=== PATIENT | female | born 1950 | race Caucasian/White ===

== ENCOUNTER → 2017-07-11 17:29 | Outpatient (CLI) | payer MEDICARE, BC, SELFPAY ==
[2017-06-26 13:20] VITALS: BMI 31.6
[2017-07-11 18:04] LABS: Absolute Lymphocyte Count 2.16 X10^3/ul (0.83-4.51); Absolute Neutrophil Count 2.8 X10^3/uL (2.0-7.7); Basophil# 0.01 X10^3/uL; Basophil% 0.2 % (0-1); Eosinophil# 0.15 X10^3/uL; Eosinophils% 2.7 % (0-5); Hematocrit 34.7 % (37-47); Hemoglobin 10.3 g/dl (12.0-15.0); Lymphocyte # 2.16 X10^3/ul (4.0); Mean Corp Hgb Conc 29.7 g/gl (32-36); Mean Corpuscular Hgb 25.8 pg (27.0-32.0); Mean Corpuscular Volume 86.8 fL (81-99); Mean Platelet Vol. 9.4 fl (6.2-12.0); Monocyte# 0.43 X10^3/uL; Monocyte% 7.8 % (0-10); Neutrophil # 2.78 X10^3/uL (2.7-7.7); Neutrophil % 50.1 % (47-70); Platelet Count 300 K/mm3 (150-450); RBC Distribution Width CV 15.9 % (11.6-14.6); RBC Distribution Width SD 50.6 fl (35.1-43.9); White Blood Count 5.5 K/mm3 (4.4-11.0)
[2017-07-11 18:06] LABS: POSITIVE COUNT NO; POSITIVE DIFFERENTIAL NO; POSITIVE MORPHOLOGY NO
== END ==
PROVIDERS: Family Provider Family Medicine Geriatric Medicine; PCP Family Medicine Geriatric Medicine; Visit Provider Family Medicine Geriatric Medicine
DX: D64.9 Anemia, unspecified (principal)
CPT/HCPCS: 85025

== ENCOUNTER → 2017-12-07 14:57 | Outpatient (CLI) | payer MEDICARE, BC, SELFPAY ==
[2017-12-07 17:09] LABS: Absolute Lymphocyte Count 1.61 X10^3/ul (0.83-4.51); Basophil# 0.02 X10^3/uL; Basophil% 0.4 % (0-1); Eosinophils% 1.9 % (0-5); Hematocrit 39.3 % (37-47); Lymphocyte # 1.61 X10^3/ul (4.0); Lymphocyte % 30.8 % (19-41); Mean Corp Hgb Conc 33.1 g/gl (32-36); Mean Corpuscular Volume 93.6 fL (81-99); Mean Platelet Vol. 10.9 fl (6.2-12.0); Monocyte# 0.43 X10^3/uL; Monocyte% 8.2 % (0-10); Neutrophil # 3.04 X10^3/uL (2.7-7.7); Neutrophil % 58.3 % (47-70); Platelet Count 259 K/mm3 (150-450); RBC Distribution Width CV 13.1 % (11.6-14.6); RBC Distribution Width SD 43.7 fl (35.1-43.9); White Blood Count 5.2 K/mm3 (4.4-11.0)
[2017-12-07 17:14] LABS: POSITIVE COUNT NO; POSITIVE DIFFERENTIAL NO; POSITIVE MORPHOLOGY NO
[2017-12-07 17:50] LABS: ALB/GLOB Ratio 0.9 RATIO (0.9-2.4); AST(SGOT) 25 U/L (15-37); Alanine Aminotransfer ALT/SGPT 28 U/L (13-56); Albumin, Serum 3.3 g/dL (3.2-5.0); Alkaline Phosphatase 75 U/L (45-117); Amylase 42 U/L (25-115); Anion Gap 9 (5-15); BUN 16 mg/dL (7-18); BUN/Creat Ratio 21.9 RATIO (10-20); Calcium,Total 9.6 mg/dL (8.5-10.1); Chloride 108 mmol/L (98-107); Creatinine, Serum 0.73 mg/dL (0.55-1.02); EST Glomerular Filtration Rate 84 mL/min (>60); Est Glom Filt Rate - Afr Amer 102 mL/min (>60); Globulin 3.6 g/dL (2.2-4.2); Glucose 84 mg/dL (74-106); Lipase 184 U/L (73-393); Potassium 4.2 mmol/L (3.5-5.1); Protein, Total 6.9 g/dL (6.4-8.2); Sodium Level 141 mmol/L (136-145); Thyroid Stim Hormone (TSH) 2.12 uIU/mL (0.358-3.74)
== END ==
PROVIDERS: Family Provider Family Medicine Geriatric Medicine; PCP Family Medicine Geriatric Medicine; Visit Provider Family Medicine Geriatric Medicine
DX: D64.9 Anemia, unspecified (principal); R10.9 Unspecified abdominal pain; R53.83 Other fatigue
CPT/HCPCS: 36415; 80053; 82150; 83690; 84443; 85025

== ENCOUNTER → 2018-07-05 15:47 | Outpatient (CLI) | payer MEDICARE, BC, SELFPAY ==
[2018-06-28 15:27] VITALS: BMI 34.0
[2018-07-05 17:09] LABS: Absolute Lymphocyte Count 2.53 X10^3/ul (0.83-4.51); Absolute Neutrophil Count 3.8 X10^3/uL (2.0-7.7); Basophil# 0.02 X10^3/uL; Basophil% 0.3 % (0-1); Eosinophil# 0.08 X10^3/uL; Eosinophils% 1.1 % (0-5); Hematocrit 40.7 % (37-47); Hemoglobin 12.7 g/dl (12.0-15.0); Lymphocyte # 2.53 X10^3/ul (4.0); Lymphocyte % 35.5 % (19-41); Mean Corp Hgb Conc 31.2 g/gl (32-36); Mean Corpuscular Hgb 27.9 pg (27.0-32.0); Mean Corpuscular Volume 89.3 fL (81-99); Mean Platelet Vol. 10.8 fl (6.2-12.0); Monocyte% 9.8 % (0-10); Neutrophil # 3.78 X10^3/uL (2.7-7.7); Neutrophil % 53.2 % (47-70); Platelet Count 324 K/mm3 (150-450); RBC Distribution Width CV 13.3 % (11.6-14.6); RBC Distribution Width SD 43.4 fl (35.1-43.9); Red Blood Count 4.56 M/mm3 (4.2-5.4); White Blood Count 7.1 K/mm3 (4.4-11.0)
[2018-07-05 17:14] LABS: POSITIVE COUNT NO; POSITIVE DIFFERENTIAL NO; POSITIVE MORPHOLOGY NO
[2018-07-05 17:27] LABS: Vitamin D,25 Hydroxy 23.6 ng/mL (29.95-100.01)
[2018-07-05 17:34] LABS: AST(SGOT) 29 U/L (15-37); Alanine Aminotransfer ALT/SGPT 32 U/L (13-56); Albumin, Serum 3.8 g/dL (3.2-5.0); Alkaline Phosphatase 78 U/L (45-117); Anion Gap 11 (5-15); BUN 21 mg/dL (7-18); BUN/Creat Ratio 25.8 RATIO (10-20); Calcium,Total 10.1 mg/dL (8.5-10.1); Chloride 110 mmol/L (98-107); Creatinine, Serum 0.81 mg/dL (0.55-1.02); EST Glomerular Filtration Rate 74 mL/min (>60); Est Glom Filt Rate - Afr Amer 90 mL/min (>60); Globulin 3.7 g/dL (2.2-4.2); Glucose 89 mg/dL (74-106); Potassium 4.2 mmol/L (3.5-5.1); Protein, Total 7.5 g/dL (6.4-8.2); Sodium Level 144 mmol/L (136-145)
== END ==
PROVIDERS: Family Provider Family Medicine Geriatric Medicine; PCP Family Medicine Geriatric Medicine; Visit Provider Family Medicine Geriatric Medicine
DX: E55.9 Vitamin D deficiency, unspecified (principal); I10 Essential (primary) hypertension
CPT/HCPCS: 36415; 80053; 82306; 84443; 85025

== ENCOUNTER → 2018-09-27 15:24 | Outpatient (CLI) | payer MEDICARE, BC, SELFPAY ==
[2018-06-28 15:27] VITALS: BMI 34.0
--- NOTE | 2018-09-27 15:27 | BI_ITS ---
MAMMOGRAPHY - BILATERAL SCREENING 3-D TOMOSYNTHESIS REASON FOR EXAM: Female, 68 years old. Bilateral Screening 3-D tomosynthesis PERTINENT HISTORY: No significant family history. TECHNIQUE: 2-D mammograms and 3-D Tomosynthesis of the breast (s) were performed. CAD was performed. COMPARISON: 2014 FINDINGS: The breast composition is almost entirely fat. Scattered benign calcifications are seen. No dense spiculated masses or suspicious microcalcifications are identified. No architectural distortion is identified. There is no skin thickening or retraction. There has been no significant change since the prior study. BI/SCREENING MAMM (CAD), BILAT IMPRESSION: No mammographic signs of malignancy. Routine yearly mammograms recommended. ASSESSMENT CATEGORY: BIRADS Category 1: Negative. A letter regarding these results will be sent to the patient by the facility within 30 days. FOLLOW UP RECOMMENDATION: Yearly follow up mammogram recommended. (A) Approximately 10% of breast cancers are not detected by mammography. A normal mammogram should not delay biopsy of a clinically suspicious abnormality. Electronically Signed: Francisco Maldonado MD at 7:55 EDT , Service support ,
--- NOTE | 2018-09-27 15:27 | BD_ITS ---
STUDY: DUAL ENERGY X-RAY ABSORPTIOMETRY / DXA REASON FOR EXAM: Female, 68 years old. The patient is postmenopausal. Loss of height. TECHNIQUE: Bone Mineral Density (BMD) measurements of lumbar spine and bilateral hips were obtained. COMPARISON: Comparison is made with prior study dated June 13, 2013. FINDINGS: Lumbar Spine (L1-L4): g/cm2 (0.996) / T-score (-1.5) / Z-score (0.1) Findings are suggestive of osteopenia with a low fracture risk. Left Femur Total: g/cm2 (0.812) / T-score (-1.6) / Z-score (-0.2) Left Femoral Neck: g/cm2 (0.813) / T-score (-1.6) / Z-score (0.0) Right Femur Total: g/cm2 (0.791) / T-score (-1.7) / Z-score (-0.4) Right Femoral Neck: g/cm2 (0.791) / T-score (-1.8) / Z-score (-0.2) The T-Scores on the most recent prior examination were: Lumbar Spine (L1-L4): There has been worsening of bone density since the previous examination. Left Femur Total: which represents a worsening of 16%. Right Femur Total: which represents a worsening of 18.4%. BD/Dexa Bone Density Study IMPRESSION: The patient is considered osteopenic as outlined below according to World Herson Organization (WHO) criteria with a moderate fracture risk. There has been worsening of bone density since the previous examination. Reference Information: The T-score is the number of standard deviations above or below the standard which is normal for young adults at their peak bone mineral density. The World Health Organization (WHO) interprets the T-scores as follows: Above -1 Normal bone density Between -1 and -2.5 Osteopenia Equal to / or below -2.5 Osteoporosis As a practical clinical guideline, osteopenia may be graded as follows: Mild -1 through -1.5 Moderate -1.6 through -2.0 Severe -2.1 through -2.4 The Z-score is the number of standard deviations above or below age-matched controls. A Z-score of less than -1.5 would be considered abnormal. References: 1. NIH Osteoporosis and Related Bone Diseases http://www.osteo.org 2. International Society for Clinical Densitometry http://www.iscd.org 3. National Osteoporosis Foundation http://www.nof.org Electronically Signed: Bravo Samayoa, at 10:04 EDT , Service support ,
== END ==
PROVIDERS: Family Provider Family Medicine Geriatric Medicine; PCP Family Medicine Geriatric Medicine; Referring Provider Family Medicine Geriatric Medicine; Visit Provider Family Medicine Geriatric Medicine
DX: Z78.0 Asymptomatic menopausal state (principal); Z12.31 Encounter for screening mammogram for malignant neoplasm of breast
CPT/HCPCS: 77063; 77067; 77080

== ENCOUNTER → 2018-11-13 14:12 | Outpatient (CLI) | payer MEDICARE, BC, SELFPAY ==
[2018-06-28 15:27] VITALS: BMI 34.0
[2018-11-13 14:36] LABS: Absolute Lymphocyte Count 1.63 X10^3/ul (0.83-4.51); Absolute Neutrophil Count 3.4 X10^3/uL (2.0-7.7); Basophil# 0.02 X10^3/uL; Basophil% 0.3 % (0-1); Eosinophils% 1.7 % (0-5); Hemoglobin 10.7 g/dl (12.0-15.0); Lymphocyte # 1.63 X10^3/ul (4.0); Lymphocyte % 28.5 % (19-41); Mean Corp Hgb Conc 31.5 g/gl (32-36); Mean Corpuscular Hgb 26.4 pg (27.0-32.0); Mean Platelet Vol. 9.9 fl (6.2-12.0); Monocyte% 10.5 % (0-10); Neutrophil # 3.37 X10^3/uL (2.7-7.7); Platelet Count 308 K/mm3 (150-450); RBC Distribution Width CV 15.1 % (11.6-14.6); RBC Distribution Width SD 45.4 fl (35.1-43.9); Red Blood Count 4.05 M/mm3 (4.2-5.4); White Blood Count 5.7 K/mm3 (4.4-11.0)
[2018-11-13 14:39] LABS: POSITIVE COUNT NO; POSITIVE DIFFERENTIAL NO; POSITIVE MORPHOLOGY NO
[2018-11-13 14:51] LABS: AST(SGOT) 23 U/L (15-37); Alanine Aminotransfer ALT/SGPT 26 U/L (13-56); Albumin, Serum 3.5 g/dL (3.2-5.0); Alkaline Phosphatase 74 U/L (45-117); Amylase 50 U/L (25-115); Anion Gap 2 (5-15); BUN 18 mg/dL (7-18); BUN/Creat Ratio 24.4 RATIO (10-20); Calcium,Total 9.3 mg/dL (8.5-10.1); Chloride 110 mmol/L (98-107); Creatinine, Serum 0.74 mg/dL (0.55-1.02); EST Glomerular Filtration Rate 83 mL/min (>60); Est Glom Filt Rate - Afr Amer 101 mL/min (>60); Globulin 3.6 g/dL (2.2-4.2); Glucose 106 mg/dL (74-106); Lipase 238 U/L (73-393); Potassium 3.7 mmol/L (3.5-5.1); Protein, Total 7.1 g/dL (6.4-8.2); Sodium Level 140 mmol/L (136-145)
--- NOTE | 2018-11-13 16:11 | CT_ITS ---
STUDY: CT ABDOMEN AND PELVIS WITH CONTRAST REASON FOR EXAM: Female, 68 years old. Pain RADIATION DOSAGE (If Supplied By Facility): DLP = ( 1348.91 ) mGycm TECHNIQUE: Transaxial images were obtained from the dome of the diaphragm to the symphysis pubis with oral contrast. 100 ml of Isovue 300 contrast was administered. Sagittal and coronal images were reconstructed. Individualized dose optimization techniques were used for this CT. COMPARISON: CT abdomen and pelvis February 16, 2015 FINDINGS: The visualized lung bases are clear. The visualized portions of the heart and pericardium are within normal limits. The gallbladder has been removed. The liver is within normal limits. There are no suspicious hepatic lesions. The spleen is normal in size. The pancreas is within normal limits. The adrenal glands are within normal limits. There are no obstructing renal stones. There is no hydronephrosis. There are no focal renal lesions. There is a large hiatal hernia. There is no bowel obstruction or inflammation. Colonic diverticulosis is present. The appendix is normal. The aorta is normal in caliber. There is no abdominal or pelvic free air, free fluid, fluid collection or lymphadenopathy. There are no destructive osseous lesions. CT/Abdomen/Pelvis WITH Contrast IMPRESSION: No acute abdominal or pelvic pathology. Diverticulosis without evidence of inflammation. Large hiatal hernia. Status post cholecystectomy. Electronically Signed: Akash Davila, at 17:39 EDT Tel , Service support ,
== END ==
LOC: POLAB3 14:51 → CT 14:57
PROVIDERS: Family Provider Family Medicine Geriatric Medicine; PCP Family Medicine Geriatric Medicine; Referring Provider Family Medicine Geriatric Medicine; Visit Provider Family Medicine Geriatric Medicine
DX: R10.9 Unspecified abdominal pain (principal)
CPT/HCPCS: 36415; 74177; 80053; 82150; 83690; 85025; Q9967

== ENCOUNTER 2019-04-22 17:36 | Emergency (ER) | payer MEDICARE, BC, SELFPAY ==
[2018-06-28 15:27] VITALS: BMI 34.0
[2019-04-22 17:39] VITALS: BP 125/86; PULSE 97; RESP 16; TEMP 35.7; O2SAT 100; BMI 34.8
--- NOTE | 2019-04-22 18:12 | EKG12_ITS ---
Test Reason : EPIGASTRIC PAIN Blood Pressure : / mmHG Vent. Rate : 088 BPM Atrial Rate : 088 BPM P-R Int : 194 ms QRS Dur : 098 ms QT Int : 368 ms P-R-T Axes : 032 -47 001 degrees QTc Int : 445 ms Normal sinus rhythm with sinus arrhythmia Left anterior fascicular block Possible Anterolateral infarct (cited on or before 30-MAY-2017) Abnormal ECG Confirmed by TITUS GARCIA, TRACE ([id number]), photography editor AIYANA DE LA TORRE ([id number]) on 04/24/2019 2:08:13 PM Referred By: KRISTI
[2019-04-22] MEDS: 0.9% Normal Saline 1,000 ML 1000 ML IV (18:27)
[2019-04-22] MEDS: Mag Hydrox/Al Hydrox/Simeth 30 ML UDC PO (18:27)
[2019-04-22 18:31] LABS: Absolute Lymphocyte Count 1.46 X10^3/uL (0.83-4.51); Absolute Neutrophil Count 3.8 X10^3/uL (2.0-7.7); Basophil# 0.02 X10^3/uL; Basophil% 0.3 % (0-1); Eosinophil# 0.11 X10^3/uL; Eosinophils% 1.9 % (0-5); Hematocrit 27.8 % (37-47); Hemoglobin 8.2 g/dL (12.0-15.0); Lymphocyte # 1.46 X10^3/ul (4.0); Lymphocyte % 24.8 % (19-41); Mean Corp Hgb Conc 29.5 g/dL (32-36); Mean Corpuscular Hgb 23.4 pg (27.0-32.0); Mean Corpuscular Volume 79.4 fL (81-99); Mean Platelet Vol. 9.6 fl (6.2-12.0); Monocyte# 0.47 X10^3/uL; NRBC Flagged by Analyzer 0 % (0-5); Neutrophil # 3.81 X10^3/uL (2.7-7.7); Neutrophil % 64.7 % (47-70); Platelet Count 309 K/mm3 (150-450); RBC Distribution Width CV 15.9 % (11.6-14.6); RBC Distribution Width SD 45.5 fl (35.1-43.9); White Blood Count 5.9 K/mm3 (4.4-11.0)
[2019-04-22 18:44] LABS: AST(SGOT) 17 U/L (15-37); Alanine Aminotransfer ALT/SGPT 25 U/L (13-56); Albumin, Serum 3.3 g/dL (3.2-5.0); Alkaline Phosphatase 69 U/L (45-117); Anion Gap 5 (5-15); BUN 17 mg/dL (7-18); BUN/Creat Ratio 25.7 RATIO (10-20); Chloride 110 mmol/L (98-107); Creatinine, Serum 0.66 mg/dL (0.55-1.02); EST Glomerular Filtration Rate 94 mL/min (>60); Est Glom Filt Rate - Afr Amer 114 mL/min (>60); Estimated Creatinine Clearance 60.18 ml/min; Globulin 3.3 g/dL (2.2-4.2); Glucose 144 mg/dL (74-106); Lipase 231 U/L (73-393); Potassium 3.8 mmol/L (3.5-5.1); Protein, Total 6.6 g/dL (6.4-8.2); Sodium Level 141 mmol/L (136-145)
--- NOTE | 2019-04-22 19:47 | CT_ITS ---
HISTORY: PT STATED ABDOM PAIN AND INDIGESTION TODAY EXAMINATION: CT Abdomen And Pelvis W/O Contrast Injection TECHNIQUE: Multiple axial images were obtained of the abdomen without oral or IV contrast. A radiation dose optimization technique was used for this scan. IV Contrast dosage and agent: None. Oral contrast: None. COMPARISON: [address] scans of the abdomen and pelvis. Most recently is November 13, 2018, then February 16, 2015, and December 04, 2014. An ERC was performed on February 17, 2015. FINDINGS: LOWER CHEST: A large hiatal hernia is present with additional abdominal fat herniating into the posterior mediastinum abutting the posterior margin of the left atrium. Minimal scarring and/or atelectasis. Some aortic valvular calcification. Mild cardiomegaly. BONES: Multilevel degenerative disc disease is mild. Disease most severe at the L5-S1 level with loss of disc height, endplate sclerosis, and anterior and posterior enthesophytes. Lower lumbar spine facet arthropathy. Vertebral body height is fairly well preserved. GALLBLADDER AND BILIARY TREE: The gallbladder has been resected No intra- or extrahepatic biliary ductal dilation. LIVER: Homogeneous. No focal mass. PANCREAS: No focal cystic or solid mass. SPLEEN: Normal size without focal cystic or solid mass. ADRENAL GLANDS: No nodules. KIDNEYS AND URETERS: Normal renal size and position. No hydronephrosis or nephrolithiasis. VESSELS: Aorta is non-dilated. PERITONEUM: No ascites or free air. No other fluid collection. Reproductive Organs: The uterus is deviated into the left hemipelvis. The ovaries are not pathologically enlarged. 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 The ovaries are not enlarged URINARY BLADDER mostly decompressed BOWEL: No stomach or bowel distension. No focal inflammatory change. APPENDIX: Is normal. Series 2 image 100 LYMPH NODES: No enlarged mesenteric or retroperitoneal lymph nodes. ABDOMINAL WALL: The paraspinous musculature, the erector spinae muscles are extremely atrophic and fattily infiltrated. There is some fatty infiltration as well into the anterior aspect of the gluteus medius and dilip muscles bilaterally. This is similar to the previous studies. CT/Abdomen/Pelvis without Cont IMPRESSION: Moderate sized gastric hernia is similar to the previous 2019 study, an larger than the 2015 studies. Individualized dose optimization techniques were used for this CT. at 2032 Reported and signed by: Deny Horner MD Electronically Signed: Deny Horner MD at 20:31 EST Tel , Service support ,
[2019-04-22 20:00] VITALS: BP 119/96; PULSE 88; RESP 18; O2SAT 98
[2019-04-22] MEDS: Ondansetron 4 MG/2 ML Vial IV (20:00)
[2019-04-22] MEDS: Morphine 4 MG/ML Syringe IV (20:00)
--- NOTE | 2019-04-22 20:42 | ED.DCSUM_ITS ---
- ER Visit Summary Date of Service: 04/22/19 Chief Complaint: Abdominal pain History of Present Illness: The patient is a [address] Doherty. She reports that she has epigastric abdominal pain that began yesterday and is gradually gotten worse. Is an aching pain is 10 to 10 hours and 6 out of 10 currently. Is worsened by nothing including movement, food, or exertion. Also relieved by nothing. She denies any nausea or vomiting. She reports she had 2 episodes of diarrhea yesterday and 2 episodes of diarrhea today. No blood in her stools or black tarry stools. No dysuria or frequency. Physical Examination: Vitals: Stable. Afebrile. General: Well-nourished and well-developed. Head: Normocephalic atraumatic. Neck: Supple, no lymphadenopathy. No JVD. Nontender. Cardiovascular: Regular rate and rhythm. No murmurs. Respiratory: No respiratory distress. Clear to auscultation bilaterally. Abdominal: Soft, mild epigastric tenderness to palpation, nondistended, normal bowel sounds. No guarding, rebound, or peritoneal signs. Back: Nontender. Extremities: Nontender, no edema. Skin: Normal color, no rash. Neurologic: Alert and oriented ?3. Cranial nerves II through XII are intact. Normal strength and sensation. Psych: Normal affect. Test Results: EKG is sinus at 88 with no acute changes. Troponin is negative. LFTs are normal. Lipase is normal. Chem-7 shows a chloride of 110 and glucose 144. CBC shows an H&H of 8.2 and 27.8. Of note her hemoglobin was 12.7 on July 05 and 10.7 on November 13. Clinical Impression(s) from Imaging Studies Abdomen/Pelvis CT 04/22/19 19:47 IMPRESSION: Moderate sized gastric hernia is similar to the previous 2019 study, an larger than the 2015 studies. Individualized dose optimization techniques were used for this CT. at 2032 Reported and signed by: Deny Horner MD Electronically Signed: Deny Horner MD at 20:31 EST Tel , Service support , Emergency Department Course and Treatment: Patient was given a GI cocktail with no relief. She is given a dose of morphine and Zofran IV. She is resting comfortably. Treatment Plan: Patient was discussed with Dr. Orozco. He will see her in the office tomorrow morning at 9 AM and refer her for repair of her hiatal hernia. He will also follow-up on her hemoglobin. Patient is happy with this plan. Return to the emergency department for any worsening symptoms. Disposition: To home in improved and stable condition. Impression: 1. Hiatal hernia. 2. Anemia. This note was generated with [employer] dictation software. It may contain incorrect words, spelling, and punctuation that were not noted in review of the chart prior to signing ED Disposition - Plan for ED Patient: Disposition: Home or Assisted Living Instructions: What Is a Hiatal Hernia? Referrals: Krishna Doherty Chi, MD [Primary Care Provider] - 04/23/19 9:00 am
== END 2019-04-22 21:07 | disposition home or self-care (01) ==
PROVIDERS: Emergency Provider Emergency Medicine; Family Provider Family Medicine Geriatric Medicine; PCP Family Medicine Geriatric Medicine
DX: K44.9 Diaphragmatic hernia without obstruction or gangrene (principal); D64.9 Anemia, unspecified
CPT/HCPCS: 74176; 80053; 83690; 84484; 85025; 93005; 96361; 96374; 96375; 99284; J7030; A4216; J2405

== ENCOUNTER → 2019-04-23 14:32 | Outpatient (CLI) | payer MEDICARE, BC, SELFPAY ==
[2019-04-22 17:39] VITALS: BMI 34.8
[2019-04-23 16:33] LABS: Absolute Neutrophil Count 3.3 X10^3/uL (2.0-7.7); Basophil# 0.02 X10^3/uL; Basophil% 0.4 % (0-1); Eosinophil# 0.08 X10^3/uL; Eosinophils% 1.6 % (0-5); Hematocrit 27.3 % (37-47); Hemoglobin 7.7 g/dL (12.0-15.0); Lymphocyte % 23.5 % (19-41); Mean Corp Hgb Conc 28.2 g/dL (32-36); Mean Corpuscular Hgb 22.9 pg (27.0-32.0); Mean Corpuscular Volume 81.3 fL (81-99); Mean Platelet Vol. 9.9 fl (6.2-12.0); Monocyte% 9.8 % (0-10); NRBC Flagged by Analyzer 0 % (0-5); Neutrophil # 3.29 X10^3/uL (2.7-7.7); Neutrophil % 64.5 % (47-70); Platelet Count 283 K/mm3 (150-450); RBC Distribution Width CV 15.9 % (11.6-14.6); RBC Distribution Width SD 46.8 fl (35.1-43.9); Red Blood Count 3.36 M/mm3 (4.2-5.4); White Blood Count 5.1 K/mm3 (4.4-11.0)
[2019-04-23 16:42] LABS: Vitamin B12 504 pg/mL (211-911)
[2019-04-23 16:54] LABS: Ferritin 4 ng/mL (8-252); Iron 20 ug/dL (50-170); Iron Binding Capacity,Total 425 ug/dL (250-450)
[2019-04-25 13:41] LABS: H. Pylori Antibody (IgG) 1.31 (0.00-0.79)
== END ==
PROVIDERS: Family Provider Family Medicine Geriatric Medicine; PCP Family Medicine Geriatric Medicine; Visit Provider Family Medicine Geriatric Medicine
DX: D64.9 Anemia, unspecified (principal); R10.9 Unspecified abdominal pain
CPT/HCPCS: 36415; 82607; 82728; 82746; 83540; 83550; 85025; 86677

== ENCOUNTER → 2019-04-25 08:11 | Outpatient (CLI) | payer MEDICARE, BC, SELFPAY ==
[2019-04-22 17:39] VITALS: BMI 34.8
[2019-04-25] VITALS (7 sets, daily range): BP systolic 109–131; BP diastolic 69–84; PULSE 73–86; RESP 14–16; TEMP 35.8–37; O2SAT 97–100; BMI 33.5
[2019-04-25] MEDS: Furosemide 20 MG/2 ML VIAL IV (11:06)
== END ==
PROVIDERS: Family Provider Family Medicine Geriatric Medicine; PCP Family Medicine Geriatric Medicine; Referring Provider Family Medicine Geriatric Medicine; Visit Provider Family Medicine Geriatric Medicine
DX: D64.9 Anemia, unspecified (principal)
CPT/HCPCS: 36430; 86850; 86900; 86901; 86920; 86922; J7040; P9016; A4216; J1940

== ENCOUNTER → 2019-04-30 14:16 | Outpatient (CLI) | payer MEDICARE, BC, SELFPAY ==
[2019-04-25 08:35] VITALS: BMI 33.5
[2019-04-30 18:11] LABS: Absolute Lymphocyte Count 2.38 X10^3/uL (0.83-4.51); Absolute Neutrophil Count 4.3 X10^3/uL (2.0-7.7); Basophil# 0.03 X10^3/uL; Basophil% 0.4 % (0-1); Eosinophil# 0.07 X10^3/uL; Eosinophils% 0.9 % (0-5); Hematocrit 33.7 % (37-47); Hemoglobin 9.9 g/dL (12.0-15.0); Lymphocyte # 2.38 X10^3/ul (4.0); Lymphocyte % 31.9 % (19-41); Mean Corp Hgb Conc 29.4 g/dL (32-36); Mean Corpuscular Hgb 23.7 pg (27.0-32.0); Mean Corpuscular Volume 80.6 fL (81-99); Mean Platelet Vol. 9.7 fl (6.2-12.0); Monocyte# 0.62 X10^3/uL; Monocyte% 8.3 % (0-10); NRBC Flagged by Analyzer 0 % (0-5); Neutrophil # 4.34 X10^3/uL (2.7-7.7); Neutrophil % 58.2 % (47-70); Platelet Count 337 K/mm3 (150-450); RBC Distribution Width CV 16.6 % (11.6-14.6); RBC Distribution Width SD 48.7 fl (35.1-43.9); Red Blood Count 4.18 M/mm3 (4.2-5.4); White Blood Count 7.5 K/mm3 (4.4-11.0)
== END ==
PROVIDERS: Family Provider Family Medicine Geriatric Medicine; PCP Family Medicine Geriatric Medicine; Visit Provider Family Medicine Geriatric Medicine
DX: D64.9 Anemia, unspecified (principal)
CPT/HCPCS: 36415; 85025

== ENCOUNTER → 2019-06-12 10:20 | Outpatient (CLI) | payer MEDICARE, BC, SELFPAY ==
[2019-04-25 08:35] VITALS: BMI 33.5
[2019-06-12 12:10] LABS: Hematocrit 38.4 % (37-47); Hemoglobin 11.5 g/dL (12.0-15.0); Mean Corp Hgb Conc 29.9 g/dL (32-36); Mean Corpuscular Hgb 23.8 pg (27.0-32.0); Mean Corpuscular Volume 79.3 fL (81-99); Mean Platelet Vol. 10.3 fl (6.2-12.0); Platelet Count 312 K/mm3 (150-450); RBC Distribution Width CV 18.9 % (11.6-14.6); RBC Distribution Width SD 54.2 fl (35.1-43.9); Red Blood Count 4.84 M/mm3 (4.2-5.4); White Blood Count 7.2 K/mm3 (4.4-11.0)
[2019-06-12 12:25] LABS: Iron 55 ug/dL (50-170)
[2019-06-13 16:08] LABS: Endomysial Antibody IgA Negative (Negative)
[2019-06-13 17:48] LABS: Immunoglobulin A 313 mg/dL (87-352); t-Transglutaminase IgA <2 U/mL (0-3)
== END ==
PROVIDERS: Family Provider Family Medicine Geriatric Medicine; PCP Family Medicine Geriatric Medicine; Referring Provider Internal Medicine Gastroenterology; Visit Provider Internal Medicine Gastroenterology
DX: D50.9 Iron deficiency anemia, unspecified (principal)
CPT/HCPCS: 36415; 82784; 83516; 83540; 85027; 86255

== ENCOUNTER → 2019-07-08 14:16 | Outpatient (CLI) | payer MEDICARE, BC, SELFPAY ==
[2019-07-08 13:25] VITALS: BMI 33.7
[2019-07-08 17:21] LABS: Absolute Lymphocyte Count 1.72 X10^3/uL (0.83-4.51); Absolute Neutrophil Count 6.8 X10^3/uL (2.0-7.7); Basophil# 0.03 X10^3/uL; Basophil% 0.3 % (0-1); Eosinophil# 0.04 X10^3/uL; Eosinophils% 0.4 % (0-5); Hematocrit 37.8 % (37-47); Hemoglobin 11.2 g/dL (12.0-15.0); Lymphocyte # 1.72 X10^3/ul (4.0); Lymphocyte % 18.6 % (19-41); Mean Corp Hgb Conc 29.6 g/dL (32-36); Mean Corpuscular Volume 81.1 fL (81-99); Mean Platelet Vol. 10.5 fl (6.2-12.0); Monocyte# 0.64 X10^3/uL; Monocyte% 6.9 % (0-10); NRBC Flagged by Analyzer 0 % (0-5); Neutrophil # 6.77 X10^3/uL (2.7-7.7); Neutrophil % 73.5 % (47-70); POSITIVE MORPHOLOGY YES; Platelet Count 269 K/mm3 (150-450); RBC Distribution Width CV 20.2 % (11.6-14.6); Red Blood Count 4.66 M/mm3 (4.2-5.4); White Blood Count 9.2 K/mm3 (4.4-11.0)
[2019-07-08 17:31] LABS: Differential Indicated SCAN CRITERIA MET
[2019-07-08 17:50] LABS: Differential Comment SCANNED
[2019-07-08 18:05] LABS: ALB/GLOB Ratio 0.9 RATIO (0.9-2.4); AST(SGOT) 19 U/L (15-37); Alanine Aminotransfer ALT/SGPT 32 U/L (13-56); Albumin, Serum 3.5 g/dL (3.2-5.0); Alkaline Phosphatase 82 U/L (45-117); Anion Gap 4 (5-15); BUN 15 mg/dL (7-18); BUN/Creat Ratio 21.1 RATIO (10-20); Calcium,Total 9.2 mg/dL (8.5-10.1); Chloride 108 mmol/L (98-107); Creatinine, Serum 0.71 mg/dL (0.55-1.02); EST Glomerular Filtration Rate 87 mL/min (>60); Est Glom Filt Rate - Afr Amer 105 mL/min (>60); Globulin 3.8 g/dL (2.2-4.2); Glucose 95 mg/dL (74-106); Potassium 3.8 mmol/L (3.5-5.1); Protein, Total 7.3 g/dL (6.4-8.2); Sodium Level 139 mmol/L (136-145); Thyroid Stim Hormone (TSH) 2.04 uIU/mL (0.358-3.74)
== END ==
PROVIDERS: PCP Family Medicine Geriatric Medicine; Visit Provider Family Medicine Geriatric Medicine
DX: E55.9 Vitamin D deficiency, unspecified (principal); I10 Essential (primary) hypertension
CPT/HCPCS: 36415; 80053; 82306; 84443; 85025

== ENCOUNTER → 2019-07-15 14:18 | Outpatient (CLI) | payer MEDICARE, BC, SELFPAY ==
[2019-07-08 13:25] VITALS: BMI 33.7
== END ==
PROVIDERS: PCP Family Medicine Geriatric Medicine; Visit Provider Family Medicine Geriatric Medicine
DX: D64.9 Anemia, unspecified (principal)

== ENCOUNTER → 2019-07-16 16:04 | Outpatient (CLI) | payer MEDICARE, BC, SELFPAY ==
[2019-07-08 13:25] VITALS: BMI 33.7
== END ==
PROVIDERS: PCP Family Medicine Geriatric Medicine; Referring Provider Family Medicine Geriatric Medicine; Visit Provider Family Medicine Geriatric Medicine
DX: R50.9 Fever, unspecified (principal)
CPT/HCPCS: 87633

== ENCOUNTER → 2019-08-09 12:40 | Outpatient (CLI) | payer MEDICARE, BC, SELFPAY ==
[2019-04-25 08:35] VITALS: BMI 33.5
[2019-07-08 13:25] VITALS: BMI 33.7
--- NOTE | 2019-08-09 12:43 | CT_ITS ---
STUDY: CT SCAN LOWER EXTREMITY RIGHT REASON FOR EXAM: Female, 69 years old. VALGUS DEFORMITY RT KNEE. [facility] PROTOCOL. Prev rt knee arthroscopy and lt knee replacement RADIATION DOSAGE (If Supplied By Facility): CTDIvol = ( 35.89 ) mGy, DLP = ( 2850.06 ) mGycm. Individualized dose optimization techniques were used for this CT.? TECHNIQUE: Multiple axial tomographic images of the hip joints, knee joints and right ankle joint were obtained for the [facility] protocol. COMPARISON: None. FINDINGS: Mild degree of degenerative changes of the right hip joint with small acetabular spur in the superior lateral aspect. There is fragmentation of the greater trochanter most likely secondary to old injury. There is evidence of a valgus deformity of the right knee joint. There is evidence of a moderate degree of joint space narrowing of the medial and lateral compartments with degenerative spurring along the lateral femoral condyle and lateral tibial plateau. No significant effusion is seen. The ankle joint is unremarkable. CT/Extremity Lower without Contra IMPRESSION: Degenerative changes of the knee joint and the right hip joint as described. Electronically Signed: Bravo Samayoa, at 15:18 EST , Service support ,
== END ==
PROVIDERS: PCP Family Medicine Geriatric Medicine; Referring Provider Orthopaedic Surgery; Visit Provider Orthopaedic Surgery
DX: M21.061 Valgus deformity, not elsewhere classified, right knee (principal)
CPT/HCPCS: 73700

== ENCOUNTER → 2019-08-09 14:00 | Outpatient (CLI) | payer MEDICARE, BC, SELFPAY ==
[2019-04-25 08:35] VITALS: BMI 33.5
[2019-07-08 13:25] VITALS: BMI 33.7
[2019-08-09 14:15] VITALS: BP 128/97; PULSE 70; RESP 16; TEMP 36.1; O2SAT 96; BMI 34.7
== END ==
LOC: SDC 13:08 → PAT 09-23 10:50
PROVIDERS: PCP Family Medicine Geriatric Medicine; Referring Provider Orthopaedic Surgery; Visit Provider Orthopaedic Surgery
DX: Z01.818 Encounter for other preprocedural examination (principal); M17.11 Unilateral primary osteoarthritis, right knee
CPT/HCPCS: 87081

== ENCOUNTER → 2019-11-21 12:54 | Outpatient (CLI) | payer MEDICARE, BC, SELFPAY ==
[2019-08-09 14:15] VITALS: BMI 34.7
[2019-11-21 13:28] LABS: Absolute Lymphocyte Count 1.76 X10^3/uL (0.83-4.51); Absolute Neutrophil Count 4.3 X10^3/uL (2.0-7.7); Basophil# 0.04 X10^3/uL; Basophil% 0.6 % (0-1); Eosinophils% 1.4 % (0-5); Hematocrit 41.3 % (37-47); Hemoglobin 12.7 g/dL (12.0-15.0); Lymphocyte # 1.76 X10^3/ul (4.0); Lymphocyte % 25.4 % (19-41); Mean Corp Hgb Conc 30.8 g/dL (32-36); Mean Corpuscular Hgb 27.7 pg (27.0-32.0); Mean Platelet Vol. 10.7 fl (6.2-12.0); Monocyte# 0.72 X10^3/uL; Monocyte% 10.4 % (0-10); NRBC Flagged by Analyzer 0 % (0-5); Neutrophil # 4.28 X10^3/uL (2.7-7.7); Neutrophil % 61.8 % (47-70); Platelet Count 287 K/mm3 (150-450); RBC Distribution Width CV 14.6 % (11.6-14.6); RBC Distribution Width SD 47.2 fl (35.1-43.9); Red Blood Count 4.59 M/mm3 (4.2-5.4); White Blood Count 6.9 K/mm3 (4.4-11.0)
[2019-11-21 13:32] LABS: International Normalized Ratio 1.1; Prothrombin Time (Protime)PT. 13.7 SECONDS (11.7-14.9)
[2019-11-21 13:58] LABS: Anion Gap 5 (5-15); BUN 19 mg/dL (7-18); BUN/Creat Ratio 27.1 RATIO (10-20); Calcium,Total 9.8 mg/dL (8.5-10.1); Chloride 107 mmol/L (98-107); EST Glomerular Filtration Rate 88 mL/min (>60); Est Glom Filt Rate - Afr Amer 106 mL/min (>60); Glucose 86 mg/dL (74-106); Potassium 4.2 mmol/L (3.5-5.1); Sodium Level 141 mmol/L (136-145)
== END ==
PROVIDERS: PCP Family Medicine Geriatric Medicine; Visit Provider Family Medicine Geriatric Medicine
DX: Z01.818 Encounter for other preprocedural examination (principal)
CPT/HCPCS: 36415; 80048; 85025; 85610

== ENCOUNTER → 2020-02-05 14:10 | Outpatient (CLI) | payer MEDICARE, BC, SELFPAY ==
[2019-08-09 14:15] VITALS: BMI 34.7
--- NOTE | 2020-02-05 14:34 | CT_ITS ---
STUDY: CT SCAN OF LOWER EXTREMITY RIGHT REASON FOR EXAM: Female, 69 years old. SHAE CLYDE, PRE OP, VARUS DEFORMITY RADIATION DOSAGE (If Supplied By Facility): CTDIvol = ( 18.89 ) mGy, DLP = ( 1193.44 ) mGycm. Individualized dose optimization techniques were used for this CT.? TECHNIQUE: Multiple axial tomographic images of the right hip joint, knee joint and ankle joint were obtained. Axial and coronal images were obtained as well. COMPARISON: Comparison is made with prior examination dated 08/09/2019. FINDINGS: Mild degree of degenerative changes of the right hip joint with a small acetabular spur in the superior lateral aspect. There is deformity of the greater trochanter most likely secondary to prior injury. There is evidence of a mild valgus deformity of the right knee joint. There is a moderate degree of joint space narrowing involving the medial and lateral compartments of knee joint with degenerative spurring in the distal femur and proximal tibia. Mild degree of the joint space narrowing involving the patellofemoral joint. The ankle joint is unremarkable. CT/Extremity Lower without Contra IMPRESSION: Stable examination. Electronically Signed: Bravo Samayoa, at 15:49 EDT , Service support ,
== END ==
PROVIDERS: PCP Family Medicine Geriatric Medicine; Referring Provider Orthopaedic Surgery; Visit Provider Orthopaedic Surgery
DX: M21.061 Valgus deformity, not elsewhere classified, right knee (principal)
CPT/HCPCS: 73700; C9803

== ENCOUNTER 2020-02-24 14:10 | Observation (INO) | payer MEDICARE, BC, SELFPAY ==
[2019-08-09 14:15] VITALS: BMI 34.7
[2020-02-05 14:38] LABS: Hematocrit 41.3 % (37-47); Hemoglobin 13.1 g/dL (12.0-15.0); Mean Corp Hgb Conc 31.7 g/dL (32-36); Mean Corpuscular Hgb 28.1 pg (27.0-32.0); Mean Corpuscular Volume 88.6 fL (81-99); Mean Platelet Vol. 10.4 fl (6.2-12.0); Platelet Count 293 K/mm3 (150-450); RBC Distribution Width CV 14.1 % (11.6-14.6); RBC Distribution Width SD 45.4 fl (35.1-43.9); Red Blood Count 4.66 M/mm3 (4.2-5.4); White Blood Count 6.2 K/mm3 (4.4-11.0)
--- NOTE | 2020-02-05 14:52 | RAD_ITS ---
STUDY: X-RAY CHEST REASON FOR EXAM: Female, 69 years old. Preoperative exam TECHNIQUE: Frontal and lateral views of the chest COMPARISON: 06/03/13 FINDINGS: The lungs are clear. There are no pleural effusions. There is no pneumothorax. The heart is normal in size. The visualized osseous structures are within normal limits. RAD/Chest PA and Lateral IMPRESSION: Clear lungs. Electronically Signed: Kael Davis, at 21:20 EDT Tel , Service support ,
[2020-02-05 15:16] LABS: Anion Gap 6 (5-15); BUN 16 mg/dL (7-18); BUN/Creat Ratio 22.3 RATIO (10-20); Calcium,Total 9.6 mg/dL (8.5-10.1); Chloride 110 mmol/L (98-107); Creatinine, Serum 0.72 mg/dL (0.55-1.02); EST Glomerular Filtration Rate 85 mL/min (>60); Est Glom Filt Rate - Afr Amer 103 mL/min (>60); Glucose 94 mg/dL (74-106); Potassium 4.3 mmol/L (3.5-5.1); Sodium Level 140 mmol/L (136-145)
[2020-02-07 11:31] LABS: Magnesium 2.2 mg/dL (1.6-2.6); Thyroid Stim Hormone (TSH) 2.55 uIU/mL (0.358-3.74)
[2020-02-24] VITALS (9 sets, daily range): BP systolic 97–137; BP diastolic 63–87; PULSE 61–95; RESP 16–18; TEMP 36.1–36.6; O2SAT 92–100; BMI 35.3; BMI 35.2
--- NOTE | 2020-02-24 | KNEE_PTH ---
PATIENT: COMFORT ROMERO LOC: [facility] U#:[id number] AGE/SX: 69/F ROOM: [facility] RE02/24/[address]: Dr. Adriana Rangel MD : 1950 BED: 1 DIS: 02/25/2020 SPEC #: [id number] RECD: 02/25/20 08:15 STATUS: BOB REQ #: [id number] VALENTÍN: 02/24/20 00:[address]: Corey Louise DEPT: SURGICAL PATHOLOGY RECD BY: Miller Patrick ENTERED: 02/25/20 08:15 SP TYPE: TOTAL KNEE OTHR DR: MD Dr. Corey Evans MD Dr. Tai Chi Kwok, MD Tissues: Knee, NOS Procedures: Decalcification bone/plaque Surgery Specimen Level IV Comments: @ Ordering doctor for DEC edited from to [email or web address] James by STEWART at 02/25/20 0941 @ Ordering doctor for SUIV edited from to [email or web address] James by STEWART at 02/25/20 0941 @ Submitting doctor edited from to @ by STEWART at 02/25/20 0941 HEADER OPERATION: ERAS, total knee replacement robotic arm PRE-OP DIAGNOSIS: Right knee primary osteoarthritis TISSUE SUBMITTED: Right knee bone and soft tissue MICROSCOPIC DIAGNOSIS Bone and soft tissue of right knee, total knee resection: Severe degenerative joint disease. Mild synovial hyperplasia. AM:juarez 02/28/20 MICROSCOPIC DESCRIPTION Slides are reviewed. GROSS DESCRIPTION Received is one container designated bone and soft tissue right knee. The specimen consists of multiple fragments of paula-yellow bone measuring in aggregate 9 x 9 x 3 cm. Also in the specimen container are multiple fragments of yellow-white soft tissue measuring in aggregate 6 x 3.5 x 1.5 cm. A number of bony fragments contain articular surfaces consistent with tibial plateau and femoral condyle and displaying prominent osteophyte formation, eburnation, and bone erosion. Platinum Smith sections are submitted in two cassettes as follows: 1 - soft tissue, 2 - bone after decalcification. / GONZALEZ:juarez 02/25/20 TC:5 CPT: 45546, 36454
[2020-02-24] MEDS: Acetaminophen 500 MG Tablet 1000 MG PO ×2 (10:48→21:12)
[2020-02-24] MEDS: Gabapentin 600 MG Tablet PO (10:48)
[2020-02-24] MEDS: Celecoxib 200 MG Capsule 400 MG PO (10:48)
[2020-02-24] MEDS: Scopolamine 1mg/72hr Patch 1 PATCH TRANSDERM. (10:49)
[2020-02-24] MEDS: Lactated Ringers 1,000 ML 100 ML IV (11:23)
[2020-02-24 11:31] LABS: Bedside Glucose 76 mg/dL (70-110)
[2020-02-24] MEDS: Cefazolin 2 GM in 0.9% Normal Saline 100 ML IV (14:15)
[2020-02-24] MEDS: dexAMETHasone 10 MG/ML Vial IV (14:25)
--- NOTE | 2020-02-24 15:52 | PRO.PCM_ITS ---
Procedure Report Date of Procedure: 02/24/20 Preoperative diagnosis: Right knee severe arthritis Postoperative diagnosis: Same Title of procedure : Right total knee replacement, press fit TREVER Surgeon: Corey Louise MD Plodding Machine Operator: Rashida Navarrete PA-C Anesthesia: Spinal adductor canal nerve block Anesthesiologist:Dr. Recinos / YASMIN Special medications: Ancef, tranexamic acid Indications for surgery: Patient is a [69-year-old [female] with a history of knee arthritis appropriately treated and failed conservative measures and wished to proceed with total knee replacement. Patient was cleared for surgery by the medical doctor and has been evaluated by the anesthesia staff Findings: Intraoperative findings showed severe arthritis of the knee. Patient underwent knee replacement using CPXin press-fit total knee components Trever robotic assisted. Size [5] femur, size [5] tibia, [32X10 ] asymmetric X3 patella, size [5-10 CS] X3 tibial polyethylene insert, knee was nicely balanced. Patella tracked well. Patient underwent standard wound closure in layers. Vicryl and strata fix sutures utilized followed by skin mary. auction assistant, physician blood and plasma laboratory assistant, was utilized throughout the entire procedure. They were vital in helping with patient positioning, holding of retractors, exposing the tissues adequately for safe completion of the procedure including cutting of the bone, helping assistant sales manager appropriate alignment and sizing of the components, implantation of the components, as well as wound closure, bandage application, and safe patient transfer. Without surgical aides teacher, physician blood and plasma laboratory assistant, surgical time would have been significantly increased, and surgical outcome could have been less optimal. Description of procedure: The patient was taken to the OR, transferred to the OR table. They were given a spinal anesthetic. Ancef was given IV preoperatively. Tranexamic acid was given IV preoperatively. Well-padded tourniquet was applied to the upper thigh of the operative leg. Nonoperative leg had a LUCIAN hose and SCD on throughout. Operative limb was prepped padded and draped in usual orthopedic sterile fashion for the procedure. We began by injecting the pain relieving solution in the anterior superior aspect of the knee region. The limb was exsanguinated, and the tourniquet was applied to 250 mmHg. Made a midline incision through skin, subcutaneous tissue, bringing down us on the extensor mechanism. Medial parapatellar arthrotomy was carried out. Straw-colored joint fluid was evacuated. We raised a sleeve of tissue off the upper medial tibia. Resected some of the infrapatellar fat pad. We remove degenerative medial and lateral meniscus. Removed bone spurs from about the patella. We removed tissue off the anterior aspect of the distal femur. Patella was translated laterally and/or everted as needed throughout the procedure. ACL was resected. PCL was preserved. Collateral ligaments were preserved. Physician placed the retractors and blood and plasma laboratory assistant held retractors protecting above ligaments throughout the procedure. Patella was everted. Measured. Appropriate resection was carried out leaving us between a 13 and 15 mm thick patella. Metal plate was applied. Pins were placed in the femur and tibia at appropriate locations being bicortical. Check pin was placed in the distal femur and upper tibia at appropriate location. [employer] robot was appropriately prepared femur then tibia. Knee was appropriately stressed in 90 degrees of flexion as well as in extension. Robot was appropriately manipulated to allow for approximately 19 to 21 mm of flexion and extension gap. Good sizing and alignment of components was noted on computer. Robotic cuts were carried out cutting the upper tibia first, followed by femoral cuts. Plodding Machine Operator help with retraction and protecting soft tissues throughout. Bone fragments were removed. we then sized off the upper tibia with the help of the blood and plasma laboratory assistant. We then checked flexion extension gaps finding them to be adequate and equal. Tibial trial with plastic insert was inserted. Next the distal femoral trial was applied. Tibial tray was allowed to freefloat with a 10 mm insert. Knee was flexed and extended an external alignment guide is utilized. Tibial trial was pinned in place. Drill holes were placed into the distal femoral trial and it was removed. Punch was used on the upper tibial component and that was removed. The sclerotic bone was softened with a sharp pin. Bone spurs had been removed from the posterior medial and posterior lateral aspect of the femur while the blood and plasma laboratory assistant lifted up on the distal femur and exposed each compartment. Patella was everted and measured. Patella was sized. Clamp was utilized. 3 drill holes were placed through the clamp held by the blood and plasma laboratory assistant. Trial patella was placed and removed. Bleeding was controlled at the back of the knee with the bovey. Posterior knee soft tissues were carefully injected with pain relieving solution. Components were checked and open. . The bony surfaces cleaned and dried. Tibia, femur, patella press-fit into position. Tibial insert was placed just before placing the femur. Plodding Machine Operator held retractors exposing the bony surfaces of the tibia and femur which were hammered in position. Patella clamped into position.balancing was again checked with the computer. Checkpoints and femoral and tibial pins removed. we thoroughly irrigated and debrided the knee. Bleeding controlled with the Bovie. Knee was again thoroughly irrigated. Irresept solution utilized. Patella noted to track nicely. We repaired the arthrotomy with a combination of #1 Vicryl and #2 strata fix. We did a mid layer of 1 Vicryl and #0 strata fix running. Weiner were utilized on the incision as well as pin sites. Mepilex dressing applied. LUCIAN hose and SCDs applied. Patient was awoken from their anesthetic, transferred back to their own bed and recovery room in satisfactory condition. Second dose of IV Tranexamic acid was given while closing wound. Patient was admitted, appropriate IV antibiotic to be utilized as well as medication for DVT prevention. Hopeful discharge in 1-2 days. Hospitalist service and Physical therapy will be consulted. Ancef was used 2 g IV preoperatively. Xarelto will be used for DVT prevention 10 mg daily This note was generated with [employer] dictation software. It may contain incorrect words, spelling, and punctuation that were not noted in checking the note before signing.
--- NOTE | 2020-02-24 16:35 | RAD_ITS ---
STUDY: X-RAY - RIGHT KNEE REASON FOR EXAM: Female, 69 years old. POST OP AP AND LAT RIGHT KNEE PORTABLE. TECHNIQUE: 2 view(s) of the knee. COMPARISON: None. FINDINGS: Status post total right knee replacement changes are seen with implants appearing in good position. Skin mary are seen anteriorly. RAD/Knee 1 or 2 Views IMPRESSION: Status post total right knee replacement changes seen with implants appearing in good position. Electronically Signed: Nicholas Humphrey MD at 17:07 EDT , Service support ,
[2020-02-24] MEDS: Lactated Ringers 1,000 ML 125 ML IV ×2 (16:57→21:12)
[2020-02-24] MEDS: Cefazolin 1 GM/50 ML BAG IV (19:22)
[2020-02-24] MEDS: Senna/Docusate Sodium 1 Tablet 2 TABLET PO (21:12)
[2020-02-24] MEDS: Pantoprazole Sodium 40 MG Tablet PO (21:13)
[2020-02-24] MEDS: oxyCODONE 5 MG Tablet PO (21:13)
[2020-02-25] MEDS: Cefazolin 1 GM/50 ML BAG IV ×2 (00:10→05:47)
[2020-02-25] MEDS: oxyCODONE 5 MG Tablet PO ×4 (01:16→12:31)
[2020-02-25 02:32] VITALS: BP 117/70; PULSE 83; RESP 18; TEMP 36.4; O2SAT 93
[2020-02-25] MEDS: Acetaminophen 500 MG Tablet 1000 MG PO ×2 (06:24→14:02)
[2020-02-25] MEDS: Rivaroxaban 10 MG Tablet PO (06:25)
[2020-02-25] MEDS: Levothyroxine 50 MCG Tablet PO (06:25)
[2020-02-25 06:29] LABS: Hemoglobin 11.3 g/dL (12.0-15.0); Mean Corp Hgb Conc 30.5 g/dL (32-36); Mean Corpuscular Hgb 28.1 pg (27.0-32.0); Mean Platelet Vol. 10.7 fl (6.2-12.0); Platelet Count 237 K/mm3 (150-450); RBC Distribution Width CV 14.1 % (11.6-14.6); RBC Distribution Width SD 47.7 fl (35.1-43.9); Red Blood Count 4.02 M/mm3 (4.2-5.4); White Blood Count 13.7 K/mm3 (4.4-11.0)
[2020-02-25 06:34] VITALS: BP 115/70; PULSE 60; RESP 18; TEMP 36.6; O2SAT 96
[2020-02-25 06:53] LABS: Anion Gap 3 (5-15); BUN 17 mg/dL (7-18); BUN/Creat Ratio 22.4 RATIO (10-20); Calcium,Total 8.6 mg/dL (8.5-10.1); Chloride 107 mmol/L (98-107); Creatinine, Serum 0.76 mg/dL (0.55-1.02); EST Glomerular Filtration Rate 80 mL/min (>60); Est Glom Filt Rate - Afr Amer 97 mL/min (>60); Estimated Creatinine Clearance 59.34 ml/min; Glucose 120 mg/dL (74-106); Potassium 4.8 mmol/L (3.5-5.1); Sodium Level 140 mmol/L (136-145)
--- NOTE | 2020-02-25 07:22 | CON.PCM_ITS ---
Problem List (1) Osteoarthritis Status: Chronic Qualifiers: Osteoarthritis location: knee Osteoarthritis type: unspecified Laterality: right Qualified Code(s): M17.11 - Unilateral primary osteoarthritis, right knee (2) GERD (gastroesophageal reflux disease) Status: Chronic Qualifiers: Esophagitis presence: esophagitis presence not specified Qualified Code(s): K21.9 - Gastro-esophageal reflux disease without esophagitis (3) Anemia Status: Chronic Qualifiers: Anemia type: iron deficiency Iron deficiency anemia type: unspecified iron deficiency Qualified Code(s): D50.9 - Iron deficiency anemia, unspecified (4) Hypothyroidism Status: Chronic Qualifiers: Hypothyroidism type: unspecified Qualified Code(s): E03.9 - Hypothyroidism, unspecified (5) Hyperlipidemia Status: Chronic Qualifiers: Hyperlipidemia type: unspecified Qualified Code(s): E78.5 - Hyperlipidemia, unspecified (6) Sinus tachycardia Status: Chronic Reason for Consult Date of Consultation: 02/25/20 Reason for Consultation: Medical management History of Present Illness: The patient is a 69 y/o F w/ PMHx: GERD, Obesity, Hypothyroidism, HLD, Hx Sinus tachycardia, Known Hiatal hernia, Chronic normocytic anemia/iron deficiency anemia, Severe OA who presents to the [facility] on 02/24/20 for planned R TKR per Dr. Epperson secondary to ongoing severe right knee pain despite outpatient conservative measures and interventions patient without any postoperative events with pain controlled and tolerating therapy eager for discharge to home with outpatient home physical therapy. Preoperative COVID testing negative. Most recent labs prior to operative intervention included CBC with WBC 6.2, hemoglobin 13.1, platelet 293, BMP unremarkable, magnesium 2.2, TSH 2.55 on 02/05/2020. Orthopedic surgery requested medical consultation for medical management. Past Medical History Past Medical History (Chronic Problems): Chronic Problems (Last Reviewed 07/08/19 @ 13:28 by Kimmy Wilburn) Osteoarthritis (Chronic) GERD (gastroesophageal reflux disease) (Chronic) Anemia (Chronic) Hypothyroidism (Chronic) Hyperlipidemia (Chronic) Sinus tachycardia (Chronic) Medical History: Medical History (Last Reviewed 07/08/19 @ 13:28 by Kimmy Wilburn) GERD (gastroesophageal reflux disease) (Chronic) K21.9 Anemia (Chronic) D64.9 Hypothyroidism (Chronic) E03.9 Abnormal EKG (Acute) R94.31 Hyperlipidemia (Chronic) E78.5 Sinus tachycardia (Chronic) R00.0 Hiatal hernia K44.9 Allergies latex Allergy (Verified 02/24/20 10:29) Rash Home Medications: Ambulatory Orders Medication Instructions Recorded Levothyroxine [Synthroid] 50 mcg PO DAILY 02/16/15 calcium carbonate 600 mg (1,500 1 tab PO QDAY 06/23/17 mg)-vitamin D3 200 unit tablet Cetirizine HCl [Zyrtec] 10 mg PO DAILY 04/22/19 ferrous sulfate 325 mg (65 mg 150 mg PO DAILY 07/08/19 iron) tablet pantoprazole 20 mg tablet,delayed 40 mg PO BID tab 07/08/19 release metoprolol succinate 50 mg 50 mg PO DAILY #90 tab 01/20/20 tablet,extended release 24 hr Acetaminophen [Tylenol] 1,000 mg PO Q8 #60 tab 02/25/20 Oxycodone [Oxyir] 5 - 10 mg PO Q4H PRN PRN 7 Days 02/25/20 #56 tab Rivaroxaban [Xarelto] 10 mg PO DAILY@0600 #6 tab 02/25/20 Senna/Docusate Sodium [Senokot-S] 2 tab PO BID #30 tab 02/25/20 Surgical History: Surgical History (Last Reviewed 07/08/19 @ 13:28 by Kimmy Wilburn) History of cholecystectomy Z98.890, Z90.49 History of foot surgery Z98.890 Lt History of left knee surgery Z98.890 History of tonsillectomy Z98.890, Z90.89 S/P bunionectomy Z98.890 Surgical History: - - Cholecystectomy, left foot surgery/reconstructive, left knee surgery, tonsillectomy, bunionectomy, recent right total knee replacement. Psychiatric History: No pertinent psych hx PHYSICAL EDUCATION DEPARTMENT CHAIR History: No pertinent PHYSICAL EDUCATION DEPARTMENT CHAIR history Lives: Spouse/ Significant Other Smoking Status: Never smoker Tobacco Use: Non-smoker Alcohol: None Drugs: None - *Family History Maternal Family History: Family History (Last Reviewed 07/08/19 @ 13:28 by Kimmy Wilburn) Father History of implantable cardioverter-defibrillator (ICD) placement Brother Hypertension Sister Hypertension History Items: - - Macular degeneration. Denies maternal history of HD, DM, CA. Paternal Family History: Family History (Last Reviewed 07/08/19 @ 13:28 by Kimmy Wilburn) Father History of implantable cardioverter-defibrillator (ICD) placement Brother Hypertension Sister Hypertension History Items: Heart Disease, Hypertension Review of Systems Constitutional: Reports: Fatigue. Denies: Anorexia, Chills, Fever, Malaise, Weakness, Weight Change HEENT: Denies: Head Aches, Sinus Congestion, Sinus Drainage Cardiovascular: Reports: Palpitations. Denies: Chest Pain, Orthopnea Respiratory: Denies: Cough, Shortness of Breath, Shortness of breath at rest, Shortness of breath upon exertion, Sputum production Gastrointestinal: Denies: Abdominal Pain, Nausea, Vomiting Genitourinary: Denies: Dysuria Musculoskeletal: Reports: Joint Pain, Joint stiffness, Joint swelling, Joint Tenderness Skin: Reports: Skin Changes. Denies: Rash, Wounds Neurological: Denies: Numbness, Tingling, Focal weakness Psychiatric: Denies: Anxiety, Depression, Homicidal Ideations, Suicidal Ideations Hematologic/ Lymphatic: Reports: Anemia. Denies: Easy Bruising, Easy Bleeding Subjective: Seated upright in the MS chair, no acute distress, pain controlled. Objective: Physical Examination: General: awake, alert, oriented x 3 and cooperative, seated upright in the MS chair, in no apparent distress. Skin: normal color, turgor, no icterus, cyanosis, s/p R TKR, dressing in place. HEENT: AT/NC, EOMI, PERRLA, MMM. Lungs: CTA bilaterally, moderate effort, mild decrease BL bases, no rales, ronchi or wheezing. Heart: Currently regular rate and rhythm; no gallop, rub audible. Abdomen: soft, obese, NTTP, ND, mildly hyperactive BS. Extremities: no cyanosis, clubbing, or edema. Neurological: patient awake, alert, oriented x 3; cognitive function intact; pupils equally reactive to light and accomodation; cranial nerves II-XII grossly normal, moving all 4 extremities although expected decrease RLE s/p recent R TKR, no focal deficits, strength improving, moderately globally decreased. Psychiatric: affect appears normal, no acute evidence of depressive or anxiety feelings. - Physical Exam Vitals/I&O's: Vital Signs Temp Pulse Resp BP Pulse Ox 97.8 F 60 18 115/70 96 02/25/20 06:34 02/25/20 06:34 02/25/20 06:34 02/25/20 06:34 02/25/20 06:34 Oxygen Flow Rate (L/min) 6 Oxygen Delivery Method Room Air Weight: 253 lb Body Mass Index (BMI) 35.2 Intake and Output for Last 24 Hours 02/23/20 02/24/20 02/25/20 23:59 23:59 23:59 Intake Total 2955.75 / 2955.75 1600.00 / 1600.00 Output Total 800 / 800 Balance 2955.75 / 2955.75 800.00 / 800.00 Laboratory Results 02/24/20 10:45: POC Glucose 76 02/25/20 05:58: WBC 13.7 H, RBC 4.02 L, Hgb 11.3 L, Hct 37.0, MCV 92.0, MCH 28.1, MCHC 30.5 L, RDW Std Deviation 47.7 H, RDW Coeff of Krystin 14.1, Plt Count 237, MPV 10.7 02/25/20 05:58: Sodium 140, Potassium 4.8, Chloride 107, Carbon Dioxide 30.0, Anion Gap 3 L, BUN 17, Creatinine 0.76, Estim Creat Clear Calc 59.34, Est GFR (MDRD) Af Amer 97, Est GFR (MDRD) Non-Af 80, BUN/Creatinine Ratio 22.4 H, Glucose 120 H, Calcium 8.6 Current Medications Acetaminophen (Tylenol) 1,000 mg PO Q8 [facility] Last Admin: 02/25/20 06:24 Dose: 1,000 mg Documented by: Dexamethasone Sodium Phosphate (Decadron) 10 mg IV X1 ONE Stop: 02/25/20 13:01 Sodium Chloride () 250 mls @ 15 mls/hr IV .[id number] PRN PRN Reason: Saline Flush Sodium Chloride () 250 mls @ 15 mls/hr IV .[id number] PRN PRN Reason: Additional IVPB Infusion Influenza Virus Vaccine Quadrival (Flucelvax /Fluzone ) 0.5 ml IM .ONCE ONE Stop: 02/25/20 10:01 Levothyroxine Sodium (Synthroid) 50 mcg PO DAILY@0600 [facility] Last Admin: 02/25/20 06:25 Dose: 50 mcg Documented by: Loratadine (Claritin) 10 mg PO DAILY [facility] Metoprolol Succinate (Toprol Xl (Beta Kathy)) 50 mg PO DAILY [facility] Morphine Sulfate () 2 - 4 mg IV Q2H PRN PRN PRN Reason: Pain Score 6-10/10 Morphine Sulfate () 2 - 4 mg IV Q2H PRN PRN PRN Reason: Pain Score 6-10/10 Ondansetron HCl (Zofran) 4 mg IV Q8H PRN PRN PRN Reason: NAUSEA Oxycodone HCl (Oxyir) 5 - 10 mg PO Q4H PRN PRN PRN Reason: Pain Score 4-10/10 Last Admin: 02/25/20 06:25 Dose: 5 mg Documented by: Pantoprazole Sodium (Protonix) 40 mg PO BID [facility] Last Admin: 02/24/20 21:13 Dose: 40 mg Documented by: Rivaroxaban (Xarelto) 10 mg PO DAILY@0600 [facility] Last Admin: 02/25/20 06:25 Dose: 10 mg Documented by: Senna/Docusate Sodium (Senokot-S, Pushpa-Colace) 2 tablet PO BID [facility] Last Admin: 02/24/20 21:12 Dose: 2 tablet Documented by: Sodium Chloride () 10 - 40 ml IV UD PRN PRN Reason: SALINE FLUSH Assessment/Plan All Active Problems (Last Reviewed 07/08/19 @ 13:28 by Kimmy Wilburn) Abnormal EKG (Acute) The patient is a 69 y/o F w/ PMHx: GERD, Obesity, Hypothyroidism, HLD, Hx Sinus tachycardia, Known Hiatal hernia, Chronic normocytic anemia/iron deficiency anemia, Severe OA who presents to the [facility] on 02/24/20 for planned R TKR per Dr. Epperson. 1. Severe Osteoarthritis, R Knee: Failed conservative therapies and treatments, admitted per Dr. Epperson for planned 02/24/20 R TKR, post-operative pain management, bowel regimen, DVT Prophylaxis, PT/OT/CM per Orthopedic surgery discretion. Patient without post-operative issues with pain controlled, tolerating therapies well, agree with planned discharge 02/25/20. 2. Chronic normocytic anemia, iron deficiency anemia: Admission Hgb 11.3, prior baseline appears 9-11, stable, continue outpatient iron supplementation. 3. Allergic rhinitis: We will continue patient home Zyrtec regimen. 4. History of sinus tachycardia: We will continue patient home metoprolol regimen. 5. Obesity: Weight loss and lifestyle changes encouraged. 6. Hypothyroidism: Continue home synthroid regimen. 7. GERD with known hiatal hernia: We will maintain on famotidine. 8. DVT prophylaxis: SCDs, Xarelto per orthopedic surgery discretion. Office Visits / Consults: [id number] IP Consult L3
--- NOTE | 2020-02-25 07:23 | PCM.PN.ORT ---
Subjective: Patient is 1 day following a right total knee replacement. No adverse events overnight. She slept very well. Pain in the right knee has been well controlled. She denies chest pain shortness of breath dizziness or calf pain. She is doing well overall. She feels that she would be stable for discharge back to home later today. She is hoping to work with home health physical therapy. Objective: Patient is alert and oriented x3. No acute distress at rest. Breathing easily without respiratory distress. Inspection of right knee is with 3 dry dressings. Negative Megha bilaterally without signs of DVT. Full active plantar and dorsiflexion against resistance bilateral ankles. Pedal pulses present and equal bilaterally. Neurovascularly intact. - Physical Exam Vitals/I&O's: Vital Signs Temp Pulse Resp BP Pulse Ox 97.8 F 60 18 115/70 96 02/25/20 06:34 02/25/20 06:34 02/25/20 06:34 02/25/20 06:34 02/25/20 06:34 Oxygen Flow Rate (L/min) 6 Oxygen Delivery Method Room Air Weight: 114.759 kg Body Mass Index (BMI) 35.2 Intake and Output for Last 24 Hours 02/23/20 02/24/20 02/25/20 23:59 23:59 23:59 Intake Total 2955.75 / 2955.75 1600.00 / 1600.00 Output Total 800 / 800 Balance 2955.75 / 2955.75 800.00 / 800.00 Laboratory Results 02/24/20 10:45: POC Glucose 76 02/25/20 05:58: WBC 13.7 H, RBC 4.02 L, Hgb 11.3 L, Hct 37.0, MCV 92.0, MCH 28.1, MCHC 30.5 L, RDW Std Deviation 47.7 H, RDW Coeff of Krystin 14.1, Plt Count 237, MPV 10.7 02/25/20 05:58: Sodium 140, Potassium 4.8, Chloride 107, Carbon Dioxide 30.0, Anion Gap 3 L, BUN 17, Creatinine 0.76, Estim Creat Clear Calc 59.34, Est GFR (MDRD) Af Amer 97, Est GFR (MDRD) Non-Af 80, BUN/Creatinine Ratio 22.4 H, Glucose 120 H, Calcium 8.6 Current Medications Acetaminophen (Tylenol) 1,000 mg PO Q8 [facility] Last Admin: 02/25/20 06:24 Dose: 1,000 mg Documented by: Dexamethasone Sodium Phosphate (Decadron) 10 mg IV X1 ONE Stop: 02/25/20 13:01 Sodium Chloride () 250 mls @ 15 mls/hr IV .[id number] PRN PRN Reason: Saline Flush Sodium Chloride () 250 mls @ 15 mls/hr IV .[id number] PRN PRN Reason: Additional IVPB Infusion Influenza Virus Vaccine Quadrival (Flucelvax /Fluzone ) 0.5 ml IM .ONCE ONE Stop: 02/25/20 10:01 Levothyroxine Sodium (Synthroid) 50 mcg PO DAILY@0600 [facility] Last Admin: 02/25/20 06:25 Dose: 50 mcg Documented by: Loratadine (Claritin) 10 mg PO DAILY [facility] Metoprolol Succinate (Toprol Xl (Beta Kathy)) 50 mg PO DAILY [facility] Morphine Sulfate () 2 - 4 mg IV Q2H PRN PRN PRN Reason: Pain Score 6-10/10 Morphine Sulfate () 2 - 4 mg IV Q2H PRN PRN PRN Reason: Pain Score 6-10/10 Ondansetron HCl (Zofran) 4 mg IV Q8H PRN PRN PRN Reason: NAUSEA Oxycodone HCl (Oxyir) 5 - 10 mg PO Q4H PRN PRN PRN Reason: Pain Score 4-10/10 Last Admin: 02/25/20 06:25 Dose: 5 mg Documented by: Pantoprazole Sodium (Protonix) 40 mg PO BID [facility] Last Admin: 02/24/20 21:13 Dose: 40 mg Documented by: Rivaroxaban (Xarelto) 10 mg PO DAILY@0600 [facility] Last Admin: 02/25/20 06:25 Dose: 10 mg Documented by: Senna/Docusate Sodium (Senokot-S, Pushpa-Colace) 2 tablet PO BID [facility] Last Admin: 02/24/20 21:12 Dose: 2 tablet Documented by: Sodium Chloride () 10 - 40 ml IV UD PRN PRN Reason: SALINE FLUSH Medical Necessity - Tobacco Use Smoking Status: Never smoker Tobacco Use: Non-smoker Assessment/Plan All Active Problems (Last Reviewed 07/08/19 @ 13:28 by Kimmy Wilburn) Anemia (Acute) Abnormal EKG (Acute) Sinus tachycardia (Acute) 1. Status post right total knee replacement postoperative day #1 2. Continue OxyIR for pain control and Tylenol 3. Begin PT/OT weightbearing as tolerated right lower extremity with a walker 4. DVT prophylaxis bilateral teds SCDs and Xarelto x1 week 5. Leukocytosis afebrile without acute signs of infection likely resulting from Decadron versus acute stress response anticipate resolution over the next several days 6. Encourage incentive spirometry 7. Continue discharge planning with case management 8. Continue postoperative medical management per hospitalist group 9. Patient is orthopedically stable and okay for discharge to home today if cleared medically having adequate pain control and doing well with physical therapy
--- NOTE | 2020-02-25 07:31 | DCINST_ITS ---
Discharge Diet: No Restrictions Discharge Activity: May Not Drive, May not drive while taking narcotic pain medications., Use Walker May shower in (days): 2 - Okay to shower over Mepilex dressing Ice area for (Minutes): 20 - every hour while awake. Weight Bearing Status: Weight bearing as tolerated Elevate: Operative Extremity Additional Activity Instructions:: Wear elastic stockings for 2 weeks after your surgery. See [place] orthopedic postoperative instructions Call your doctor if your incision/area has: Continuous Slow Oozing, Sudden Increased Bleeding, Increased Pain/ Swelling, Increased Redness, Foul Smelling Discharge Call your doctor if you observe: Fever of 101 or Higher, Coldness, Increased Pain, Numbness or Tingling, Change in Color, Shortness of breath, Chest pain, Calf discomfort, Uncontrolled pain Remove Dressing in (days):: 5 - Okay to shower over surgical sites with mary if incision is without active drainage Cleanse incision/area with: Soap & Water Additional Dressing/Incision Instructions:: See [place] orthopedic postoperative instruction sheet Allergies/Adverse Reactions: Allergies latex Allergy (Verified 02/24/20 10:29) Rash Medications to take at Discharge Levothyroxine [Synthroid] 50 mcg PO DAILY 02/16/15 calcium carbonate 600 mg (1,500 mg)-vitamin D3 200 unit tablet 1 tab PO QDAY 06/23/17 Cetirizine HCl [Zyrtec] 10 mg PO DAILY 04/22/19 ferrous sulfate 325 mg (65 mg iron) tablet 150 mg PO DAILY 07/08/19 pantoprazole 20 mg tablet,delayed release 40 mg PO BID tab 07/08/19 metoprolol succinate 50 mg tablet,extended release 24 hr 50 mg PO DAILY #90 tab 01/20/20 Acetaminophen [Tylenol] 1,000 mg PO Q8 #60 tab 02/25/20 Oxycodone [Oxyir] 5 - 10 mg PO Q4H PRN PRN 7 Days #56 tab 02/25/20 Rivaroxaban [Xarelto] 10 mg PO DAILY@0600 #6 tab 02/25/20 Senna/Docusate Sodium [Senokot-S] 2 tab PO BID #30 tab 02/25/20 The following prescriptions were given: Oxycodone [Oxyir] 5 - 10 mg PO Q4H PRN PRN 7 Days #56 tab PRN Reason: Pain Score 4-10/10 Prescription Printed Senna/Docusate Sodium [Senokot-S] 2 tab PO BID #30 tab Prescription Printed Acetaminophen [Tylenol] 1,000 mg PO Q8 #60 tab Prescription Printed Rivaroxaban [Xarelto] 10 mg PO DAILY@0600 #6 tab Prescription Printed Primary Care Physician: Krishna Doherty Chi, MD [Primary Care Provider] - Test Results: Test results from this visit will be discussed in further detail at your follow- up appointment, if applicable. Proposed Discharge Date: 02/25/20
[2020-02-25 09:08] VITALS: PULSE 74
[2020-02-25] MEDS: Metoprolol(XL)Succ 50 MG Tablet PO (09:08)
[2020-02-25] MEDS: Pantoprazole Sodium 40 MG Tablet PO (09:08)
[2020-02-25] MEDS: Senna/Docusate Sodium 1 Tablet 2 TABLET PO (09:08)
[2020-02-25] MEDS: Loratadine 10 MG Tablet PO (09:09)
[2020-02-25] MEDS: Famotidine 20 MG Tablet PO (09:09)
[2020-02-25 09:10] VITALS: BP 117/63; PULSE 74; RESP 16; TEMP 36.4; O2SAT 95
--- NOTE | 2020-02-25 11:22 | PHA.DC.MC ---
Pharmacy Service has performed discharge medication reconciliation and counseling for this patient. 1. ACETAMINOPHEN 1000MG Q8H 2. OXYCODONE 5-10MG PO Q4H PRN PAIN 4-10/10 X 7 DAYS 3. RIVAROXABAN 10MG PO DAILY X 6 DAYS 4. SENNA/DOCUSATE 2T PO BID The patient's discharge medication list was reviewed for discrepancies and discrepancies were resolved. Home Medications Levothyroxine [Synthroid] 50 mcg PO DAILY 02/16/15 calcium carbonate 600 mg (1,500 mg)-vitamin D3 200 unit tablet 1 tab PO QDAY 06/23/17 Cetirizine HCl [Zyrtec] 10 mg PO DAILY 04/22/19 ferrous sulfate 325 mg (65 mg iron) tablet 150 mg PO DAILY 07/08/19 pantoprazole 20 mg tablet,delayed release 40 mg PO BID tab 07/08/19 metoprolol succinate 50 mg tablet,extended release 24 hr 50 mg PO DAILY #90 tab 01/20/20 Acetaminophen [Tylenol] 1,000 mg PO Q8 #60 tab 02/25/20 Oxycodone [Oxyir] 5 - 10 mg PO Q4H PRN PRN 7 Days #56 tab 02/25/20 Rivaroxaban [Xarelto] 10 mg PO DAILY@0600 #6 tab 02/25/20 Senna/Docusate Sodium [Senokot-S] 2 tab PO BID #30 tab 02/25/20 The patient was counseled on the following discharge medications and changes in medications for homegoing were reviewed. The Reason for Use, instructions for use, and potential side effects were reviewed for all new medications. The patient's questions regarding all of their medications were answered. The patient was able to verbally demonstrate an understanding of their discharge medications. Patient counseled by certified pharmacy tech, Kadie.
--- NOTE | 2020-02-25 13:06 | CASEMGMT ---
GRACIA ASHBY Note: Patient requested Home Health Care. Intro role of CM to patient in room. Patient is concerned re: COVID and was requesting HHC. GRACIA ASHBY explained she is not homebound and the PT/OT @ [facility] would be following guidelines for cleaning and care of patients. GRACIA ASHBY let her know she would be required to wear a mask there. Pt is agreeable to this and has a ride to therapy. She believes her first therapy is on . -Patient has walker, raised toilet seat, grab bars, cane, comfort height commode. -DC PLAN: dc today. No care needs identified. Patient will do outpt PT @ [facility]. Darshana URENA RN ACM
[2020-02-25] MEDS: dexAMETHasone 10 MG/ML Vial IV (14:02)
[2020-02-25] MEDS: 0.9% Saline Lock 10 ML Syringe IV (14:05)
[2020-02-25 14:55] VITALS: BP 113/70; PULSE 77; RESP 16; TEMP 36.6; O2SAT 93
== END 2020-02-25 15:45 | disposition home or self-care (01) ==
LOC: SDC 14:21 → MS3 02-25 07:27
PROVIDERS: Anesthesiology; Admitting Provider Orthopaedic Surgery; PCP Family Medicine Geriatric Medicine; Referring Provider Orthopaedic Surgery; Visit Provider Family Medicine
PROC: 0SRC0JZ Replacement of Right Knee Joint with Synthetic Substitute, Open Approach (ICD-10-PCS; CPT 27447; principal; 2020-02-24 12:00)
DX: M17.11 Unilateral primary osteoarthritis, right knee (principal); Z11.59 Encounter for screening for other viral diseases; Z23 Encounter for immunization; E03.9 Hypothyroidism, unspecified; E78.5 Hyperlipidemia, unspecified; D50.9 Iron deficiency anemia, unspecified; K21.9 Gastro-esophageal reflux disease without esophagitis; K44.9 Diaphragmatic hernia without obstruction or gangrene; E66.01 Morbid (severe) obesity due to excess calories; R00.0 Tachycardia, unspecified; Z68.35 Body mass index [BMI] 35.0-35.9, adult; Z79.899 Other long term (current) drug therapy; Z79.82 Long term (current) use of aspirin
CPT/HCPCS: 01400; 27447; 64447; S2900; 36415; 71046; 73560; 80048; 82962; 83735; 84443; 85027; 87081; 87635; 88305; 88311; 96361; 96365; 96366; 96375; 97110; 97116; 97162; 97166; 97530; 99218; 99251; C1776; C9803; G0008; J7120; 90686; A4216; G0378; G0379; G0463; J2405; U0003

== ENCOUNTER → 2020-05-13 14:05 | Outpatient (CLI) | payer MEDICARE, BC, SELFPAY ==
[2020-02-24 18:35] VITALS: BMI 35.2
[2020-05-13 14:58] LABS: Absolute Lymphocyte Count 2.37 X10^3/uL (0.83-4.51); Absolute Neutrophil Count 3.9 X10^3/uL (2.0-7.7); Basophil# 0.04 X10^3/uL; Basophil% 0.6 % (0-1); Eosinophils% 1.4 % (0-5); Hematocrit 39.6 % (37-47); Lymphocyte # 2.37 X10^3/ul (4.0); Lymphocyte % 33.2 % (19-41); Mean Corp Hgb Conc 30.3 g/dL (32-36); Mean Platelet Vol. 10.2 fl (6.2-12.0); Monocyte# 0.69 X10^3/uL; Monocyte% 9.7 % (0-10); NRBC Flagged by Analyzer 0 % (0-5); Neutrophil # 3.92 X10^3/uL (2.7-7.7); Platelet Count 344 K/mm3 (150-450); RBC Distribution Width CV 13.7 % (11.6-14.6); RBC Distribution Width SD 44.7 fl (35.1-43.9); Red Blood Count 4.45 M/mm3 (4.2-5.4); White Blood Count 7.1 K/mm3 (4.4-11.0)
[2020-05-13 15:13] LABS: CRP 5.81 mg/L (0.0-3.0)
[2020-05-13 16:59] LABS: Erythrocyte Sedimentation Rate 29 mm/hr (0-30)
== END ==
PROVIDERS: PCP Family Medicine Geriatric Medicine; Visit Provider Orthopaedic Surgery
DX: Z96.651 Presence of right artificial knee joint (principal)
CPT/HCPCS: 36415; 85025; 85652; 86140

== ENCOUNTER → 2020-07-13 13:44 | Outpatient (CLI) | payer MEDICARE, BC, SELFPAY ==
[2020-07-13 13:08] VITALS: BMI 36.6
[2020-07-13 16:50] LABS: Absolute Lymphocyte Count 2.15 X10^3/uL (0.83-4.51); Absolute Neutrophil Count 4.7 X10^3/uL (2.0-7.7); Basophil# 0.03 X10^3/uL; Basophil% 0.4 % (0-1); Eosinophil# 0.12 X10^3/uL; Eosinophils% 1.6 % (0-5); Hematocrit 39.8 % (37-47); Hemoglobin 11.6 g/dL (12.0-15.0); Lymphocyte # 2.15 X10^3/ul (4.0); Lymphocyte % 28.1 % (19-41); Mean Corp Hgb Conc 29.1 g/dL (32-36); Mean Corpuscular Hgb 25.8 pg (27.0-32.0); Mean Corpuscular Volume 88.4 fL (81-99); Mean Platelet Vol. 10.4 fl (6.2-12.0); Monocyte% 7.8 % (0-10); NRBC Flagged by Analyzer 0 % (0-5); Neutrophil # 4.71 X10^3/uL (2.7-7.7); Neutrophil % 61.6 % (47-70); Platelet Count 314 K/mm3 (150-450); RBC Distribution Width CV 14.1 % (11.6-14.6); RBC Distribution Width SD 45.7 fl (35.1-43.9); White Blood Count 7.7 K/mm3 (4.4-11.0)
[2020-07-13 17:14] LABS: ALB/GLOB Ratio 0.9 RATIO (0.9-2.4); AST(SGOT) 22 U/L (15-37); Alanine Aminotransfer ALT/SGPT 30 U/L (13-56); Albumin, Serum 3.5 g/dL (3.2-5.0); Alkaline Phosphatase 82 U/L (45-117); Anion Gap 4 (5-15); BUN 18 mg/dL (7-18); BUN/Creat Ratio 22.8 RATIO (10-20); Calcium,Total 9.6 mg/dL (8.5-10.1); Chloride 109 mmol/L (98-107); Creatinine, Serum 0.79 mg/dL (0.55-1.02); EST Glomerular Filtration Rate 76 mL/min (>60); Est Glom Filt Rate - Afr Amer 92 mL/min (>60); Globulin 3.7 g/dL (2.2-4.2); Glucose 97 mg/dL (74-106); Potassium 4.3 mmol/L (3.5-5.1); Protein, Total 7.2 g/dL (6.4-8.2); Sodium Level 141 mmol/L (136-145); Thyroid Stim Hormone (TSH) 2.89 uIU/mL (0.358-3.74)
== END ==
PROVIDERS: PCP Family Medicine Geriatric Medicine; Visit Provider Family Medicine Geriatric Medicine
DX: I10 Essential (primary) hypertension (principal); E55.9 Vitamin D deficiency, unspecified
CPT/HCPCS: 36415; 80053; 82306; 84443; 85025

== ENCOUNTER → 2020-07-29 12:17 | Outpatient (CLI) | payer MEDICARE, BC, SELFPAY ==
[2020-07-13 13:08] VITALS: BMI 36.6
--- NOTE | 2020-07-29 12:19 | BI_ITS ---
MAMMOGRAPHY - BILATERAL SCREENING REASON FOR EXAM: Female, 69 years old. Routine annual screening examination. PERTINENT HISTORY: Non-contributory. TECHNIQUE: Digital bilateral breast talia (3D mammographic acquisition) in the CC and MLO projections. 2-D mediolateral oblique (MLO) and craniocaudad (CC) views of both breasts were obtained. CAD: Full Field Digital Mammography with Computer Added Detection was performed. COMPARISON: Comparison is made with prior study dated 09/27/2018 and 07/31/2014. FINDINGS: Breast Composition: The breasts are almost entirely fatty. There are no dominant masses or suspicious calcifications. No other significant abnormalities are identified. There has been no significant change since the prior study. BI/SCRN MAMM (CAD)W/TALIA BILAT IMPRESSION: Stable bilateral screening mammogram. Yearly follow-up mammogram recommended. (A) ASSESSMENT CATEGORY: BIRADS Category 1: Negative. A letter regarding these results will be sent to the patient by the facility within 30 days. Approximately 10% of breast cancers are not detected by mammography. A normal mammogram should not delay biopsy of a clinically suspicious abnormality. [id number] Electronically Signed: Bravo Samayoa MD at 13:16 EST , Service support ,
== END ==
PROVIDERS: PCP Family Medicine Geriatric Medicine; Referring Provider Family Medicine Geriatric Medicine; Visit Provider Family Medicine Geriatric Medicine
DX: Z12.31 Encounter for screening mammogram for malignant neoplasm of breast (principal)
CPT/HCPCS: 77063; 77067

== ENCOUNTER → 2020-11-11 14:13 | Outpatient (CLI) | payer MEDICARE, BC, SELFPAY ==
[2020-07-13 13:08] VITALS: BMI 36.6
--- NOTE | 2020-11-11 14:25 | RAD_ITS ---
HISTORY: FECAL IMPACTION EXAMINATION/TECHNIQUE: XR Abdomen 1 View: COMPARISON: None FINDINGS: LINES AND TUBES: None. BOWEL GAS PATTERN: Non-obstructive. No bowel or stomach distention. FREE AIR: Not assessed on a single supine view. ORGANOMEGALY: Not seen. CALCIFICATIONS: No abnormal calcifications observed. LOWER CHEST: No acute pathology. BONES AND SOFT TISSUES: No acute pathology. RAD/Abdomen Single View IMPRESSION: Non-obstructive bowel gas pattern. at 1534 Reported and signed by: Colt Chavez MD Electronically Signed: Colt Chavez MD at 15:33 EDT Tel , Service support ,
== END ==
PROVIDERS: PCP Family Medicine Geriatric Medicine; Referring Provider Family Medicine Geriatric Medicine; Visit Provider Family Medicine Geriatric Medicine
DX: K56.41 Fecal impaction (principal)
CPT/HCPCS: 74018

== ENCOUNTER → 2020-11-16 | Outpatient (CLI) | payer MEDICARE, BC, SELFPAY ==
[2020-07-13 13:08] VITALS: BMI 36.6
== END | disposition home or self-care (01) ==
PROVIDERS: PCP Family Medicine Geriatric Medicine; Referring Provider Family Medicine Geriatric Medicine; Visit Provider Family Medicine Geriatric Medicine
DX: R19.7 Diarrhea, unspecified (principal)
CPT/HCPCS: 82274; 83630; 87177; 87209; 87493; 87506

== ENCOUNTER 2021-07-14 11:40 | Outpatient (CLI) | payer MEDICARE, BC, SELFPAY ==
[2021-07-14 12:28] LABS: Absolute Lymphocyte Count 2.42 X10^3/uL (0.83-4.51); Absolute Neutrophil Count 4.4 X10^3/uL (2.0-7.7); Basophil# 0.02 X10^3/uL; Basophil% 0.3 % (0-1); Eosinophil# 0.16 X10^3/uL; Hematocrit 40.4 % (37-47); Lymphocyte # 2.42 X10^3/ul (0.83-4.51); Lymphocyte % 30.9 % (19-41); Mean Corp Hgb Conc 32.2 g/dL (32-36); Mean Corpuscular Hgb 27.3 pg (27.0-32.0); Mean Corpuscular Volume 84.9 fL (81-99); Mean Platelet Vol. 10.7 fl (6.2-12.0); Monocyte# 0.83 X10^3/uL; Monocyte% 10.6 % (0-10); NRBC Flagged by Analyzer 0 % (0-5); Neutrophil # 4.38 X10^3/uL (2.7-7.7); Neutrophil % 55.9 % (47-70); Platelet Count 363 K/mm3 (150-450); RBC Distribution Width CV 14.5 % (11.6-14.6); RBC Distribution Width SD 44.6 fl (35.1-43.9); Red Blood Count 4.76 M/mm3 (4.2-5.4); White Blood Count 7.8 K/mm3 (4.4-11.0)
[2021-07-14 13:14] LABS: Vitamin D,25 Hydroxy 29.4 ng/mL
[2021-07-14 13:22] LABS: ALB/GLOB Ratio 0.9 RATIO (0.9-2.4); AST(SGOT) 19 U/L (15-37); Alanine Aminotransfer ALT/SGPT 29 U/L (13-56); Albumin, Serum 3.6 g/dL (3.2-5.0); Alkaline Phosphatase 85 U/L (45-117); Anion Gap 7 (5-15); BUN 18 mg/dL (7-18); BUN/Creat Ratio 24.9 RATIO (10-20); Calcium,Total 9.6 mg/dL (8.5-10.1); Chloride 108 mmol/L (98-107); Creatinine, Serum 0.72 mg/dL (0.55-1.02); EST Glomerular Filtration Rate 85 mL/min (>60); Est Glom Filt Rate - Afr Amer 102 mL/min (>60); Globulin 4.1 g/dL (2.2-4.2); Glucose 90 mg/dL (74-106); Potassium 4.3 mmol/L (3.5-5.1); Protein, Total 7.7 g/dL (6.4-8.2); Sodium Level 139 mmol/L (136-145); Thyroid Stim Hormone (TSH) 2.82 uIU/mL (0.358-3.74)
== END 2021-07-14 23:59 | disposition home or self-care (01) ==
LOC: POLAB3 11:42
PROVIDERS: PCP Family Medicine Geriatric Medicine; Visit Provider Family Medicine Geriatric Medicine
DX: I10 Essential (primary) hypertension (principal); E55.9 Vitamin D deficiency, unspecified
CPT/HCPCS: 36415; 80053; 82306; 84443; 85025

== ENCOUNTER → 2022-07-28 | Outpatient (CLI) | payer MEDICARE, BC, SELFPAY ==
--- NOTE | 2022-07-28 13:42 | BI_ITS ---
MAMMOGRAPHY - BILATERAL SCREENING REASON FOR EXAM: Female, 71 years old. Routine annual screening examination. PERTINENT HISTORY: Non-contributory. TECHNIQUE: Digital bilateral breast talia (3D mammographic acquisition) in the CC and MLO projections. 2-D mediolateral oblique (MLO) and craniocaudad (CC) views of both breasts were obtained. CAD: Full Field Digital Mammography with Computer Added Detection was performed. COMPARISON: Comparison is made with prior study dated 07/29/2020 and 09/27/2018. FINDINGS: Breast Composition: The breasts are almost entirely fatty. There are no dominant masses or suspicious calcifications. No other significant abnormalities are identified. There has been no significant change since the prior study. BI/SCRN MAMM (CAD)W/TALIA BILAT IMPRESSION: Stable bilateral screening mammogram. Yearly follow-up mammogram recommended. (A) ASSESSMENT CATEGORY: BIRADS Category 1: Negative. A letter regarding these results will be sent to the patient by the facility within 30 days. Approximately 10% of breast cancers are not detected by mammography. A normal mammogram should not delay biopsy of a clinically suspicious abnormality. [id number] Electronically Signed: Bravo Samayoa MD at 14:58 EST ,
== END | disposition home or self-care (01) ==
LOC: OPBI 13:39
PROVIDERS: PCP Family Medicine Geriatric Medicine; Visit Provider Family Medicine Geriatric Medicine
DX: Z12.31 Encounter for screening mammogram for malignant neoplasm of breast (principal)
CPT/HCPCS: 77063; 77067

== ENCOUNTER 2023-04-20 13:00 | Outpatient (RCR) | payer MEDICARE, BC, SELFPAY ==
--- NOTE | 2023-03-09 13:49 | HP.PTEVAL_ITS ---
Patient's Visit Information Visit Information Visit Information: COMFORT ROMERO is a 72 year old F referred to Physical Therapy by Dr. Miller Biswas DPM with a diagnosis of Fall risk. Date of Evaluation: 03/09/23 Physical Therapist: Derrell Sesay DPT, OCS, CSCS Visit Plan Frequency: 2x /Week Duration: 4-6 Weeks Plan: 2x/week for 4-6 weeks for gastroc stretch, ankle proprioception and HIP STRENGTHENING to HEP, core strength. Pt works out at [facility] adn I showed her hip abd and ext today but they may not have these machines at her gym so ustilize combination of gym, home, body wweight and band hip strength and get to HEP. Gait training for trendelenberg, stair training. consider balance test after hip strength improved. Subjective Subjective: Sees True for L bunion. Some years ago had a bunionectomy at [facility], since then has had B TKAs and now bunion is back. having trouble walking due to poor balance. Wants better balance. Waddles and poor balance since 3 yrs ago having R TKA. Worse in the last year. No falls. Pain is mostly in toes of feet and bunion and worse at end of day. Wears toe spacers. No neuropathy, No DM. Sleep is OK for the most part. Not employed. Has gone to pool therapy at [facility] 3x/week til a month ago, then just house activites. In December started more stretching exercises and machines.(leg press and recumbent bike) They have helped. Basic ADLs are cautious but getting done. Lives with others in one story with 3 steps to enter, with railing. Needs rail, not to basement in years. Enjoys crafting and can do those sitting. 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 Very inefficient and tiring gait pattern. Steps are hard for patient and needs UE. Transfers chair I but all quads and trouble using glutes causing her to bend FW excessivley. Hip AROM limited against gracity in abd and ext due to weakness and flexibility are WFL, knee aROM WFL to 115 B, ankle aROM tight into DF at 0 but good contractions. hip strength 3 abd and ext B, 3+ flexion, knee ext and flexion 4/5, ankles 4/5. - slum, - SLR senssation LE to gross lgiht touch WNL reflexes 0/3 patella and achilles B Can move toes without difficultyu and pes planus B but good passive metatarsal movment. Balance/Special Test Scores Functional Gait Assessment Score: 20 % Disability: 33.3400 Lower Extremity Functional Score: 22 Goals Goal 1:: Pt I in appropriate hip core and ankle strength at gym or HEP to manage waddle. Goal Time Frame: 4-6 Weeks Goal 2:: Pt feel improving gait pattern 50% Goal Time Frame: 4-6 Weeks Goal 3:: Able to SLR hip abd and ext to 15 degrees B. to show improved strength hips Goal Time Frame: 4-6 Weeks Goal 4:: step up with one rail I Goal Time Frame: 4-6 Weeks Goal 5:: balance assessment Biodex Goal Time Frame: 4-6 Weeks Goal 6:: exit chair without bend at waist excessively without UE. Goal Time Frame: 4-6 Weeks Rehabilitation Potential Physical Therapy Diagnosis: waddle adn balance/fatigue deficits due to trendelenberg gait form unknown origin Rehabilitation Potential: Fair Anticipated Interventions Patient/Client Instruction: Educate patient on: Condition and Plan of Care For the Purpose of:: To improve muscle performance and motor function, To increase tolerance to activity/condition/position, To improve gait and locomotor functions and To improve health of tissue Therapeutic Exercise to Include: Strength training, Balance training, Flexibilty training and Gait and locomotor training For the Purpose of:: To decrease pain, To increase ROM, To improve ability of physical actions for home/community/work/leisure and To improve gait and locomotor functions Text: Thank you for the opportunity to evaluate your patient. For Medicare and Medicare HMO plans, please review the plan of care and approve it. It will need to be FAXED BACK to us at [phone] for Medicare purposes. For Medicare only, by signing this I certify the plan of care. Please let me know if there are questions or concerns regarding this plan of care. Physician Signature: Date:
--- NOTE | 2023-04-20 13:52 | HP.PTREVAL ---
Re-Evaluation Intro: Dr. Miller Biswas DPM, It has been my pleasure to treat COMFORT ROMERO over the last 13 visits for Fall risk. Please see the progress note below for an update on the physical therapy plan of care! Subjective Subjective: A little better. Doing exercises, getting in pool at [facility]. Will continue gym workout at [facility] also. No real pain. Feeling stronger. Objective Objective/Function: Trendelenberg persists, up form chair several times without UE today but multiple attempts sometimes needed. Steps ups harder with L but able with rail. Plan Plan Plan: f/u one month as needed to check and progress and d/c Balance/Gait/Functional tests Balance/Special Test Scores Functional Gait Assessment Score: 20 % Disability: 33.3400 Lower Extremity Functional Score: 34 Goals Goals Goal 1:: Pt I in appropriate hip core and ankle strength at gym or [facility] to manage waddle. Goal Time Frame: 4-6 Weeks Goal Progress: home and pool, Goal 2:: Pt feel improving gait pattern 50% Goal Time Frame: 4-6 Weeks Goal Progress: 20% Goal 3:: Able to SLR hip abd and ext to 15 degrees B. to show improved strength hips Goal Time Frame: 4-6 Weeks Goal Progress: Goal Met Goal 4:: step up with one rail I Goal Time Frame: 4-6 Weeks Goal Progress: Progressing Goal 5:: balance assessment Biodex Goal Time Frame: 4-6 Weeks Goal 6:: exit chair without bend at waist excessively without UE. Goal Time Frame: 4-6 Weeks Goal Progress: improving Anticipated Interventions Anticipated Interventions Patient/Client Instruction: Educate patient on: Condition and Plan of Care For the Purpose of:: To improve muscle performance and motor function, To increase tolerance to activity/condition/position, To improve gait and locomotor functions and To improve health of tissue Therapeutic Exercise to Include: Strength training, Balance training, Flexibilty training and Gait and locomotor training For the Purpose of:: To decrease pain, To increase ROM, To improve ability of physical actions for home/community/work/leisure and To improve gait and locomotor functions Re-Evaluation Ending Re-evaluation ending: Please do not hesitate to contact me at [phone] by phone or if you have questions or concerns regarding this new plan of care! Sincerely, Derrell Lázaro, DPT, OCS, CSCS
--- NOTE | 2023-06-19 08:12 | HP.PT.NRP ---
Patient Information Patient Information: COMFORT ROMERO was seen in my office for initial evaluation on 03/09/23. The following Plan of Care was established for this patient: POC Established Initial Frequency: 2x /Week Initial Duration: 4-6 Weeks Anticipated Interventions Patient/Client Instruction: Educate patient on: Condition and Plan of Care For the Purpose of:: To improve muscle performance and motor function, To increase tolerance to activity/condition/position, To improve gait and locomotor functions and To improve health of tissue Therapeutic Exercise to Include: Strength training, Balance training, Flexibilty training and Gait and locomotor training For the Purpose of:: To decrease pain, To increase ROM, To improve ability of physical actions for home/community/work/leisure and To improve gait and locomotor functions Last Seen Last Seen: This patient was last seen in our office 04/20/23. Pertinent comments regarding their Physical therapy will appear below: Pt seen 13 visits of POC and was doing well improving by 50%. She was to f/u as needed in Mid May after performing her HEP for a month but cancelled that visit. At this point, it has been almost two months and I will discontinue her from my care. At this point I will be discontinuing this patient from physical therapy. I would be happy to see this patient again in the future if found appropriate by the physician. Thank you! Derrell Sesay, DPT, OCS, CSCS Balance/Gait/Functional tests Balance/Special Test Scores Functional Gait Assessment Score: 20 % Disability: 33.3400 Lower Extremity Functional Score: 34
== END 2023-04-20 19:00 | disposition home or self-care (01) ==
LOC: PT 13:00
PROVIDERS: PCP Family Medicine Geriatric Medicine; Referring Provider Podiatrist Foot & Ankle Surgery; Visit Provider Podiatrist Foot & Ankle Surgery
DX: Z91.81 History of falling (principal)
CPT/HCPCS: 97110; 97112; 97161; 97530

== ENCOUNTER → 2023-07-31 | Outpatient (CLI) | payer MEDICARE, BC, SELFPAY ==
--- OUTSIDE RECORDS SUMMARY | 2023-07-31 11:18 | XMS RPT_ITS | CCD ---
Author Name Unknown Address [address] [place] [address] Organization [facility] Care Team Providers Care Ornament Setter Name Role Phone Nan Bernal Unavailable Unavailable Nan Bernal Unavailable Unavailable Allergies Allergy Classification Reported Allergen(s) Allergy Type Date of Onset Reaction(s) Facility (2 sources) Latex drug allergy 08-12-2015 [facility] Work Phone: Medications Completed/Discontinued Medications Medication Drug Class(es) Dates Sig (Normalized) Sig (Original) aspirin 81 mg oral tablet (4 sources) Platelet Aggregation Inhibitor, Nonsteroidal Anti-inflammatory Drug Start: 08-11-2015 take 1 tablet by mouth once daily ASPIRIN 81 MG TABS One tablet by mouth daily ASPIRIN [id number] Yvonne Willett RN Problems Active Problems Problem Classification Problem Date Documented Da te Episodic/Chronic Cardiac dysrhythmias (2 sources) Sinus tachycardia; Translations: [Tachycardia, unspecified] Onset: 11-03-2015 11-03-2015 Chronic Disorders of lipid metabolism (2 sources) Hyperlipidemia; Translations: [Hyperlipidemia, unspecified] Onset: 08-11-2015 08-11-2015 Chronic Other nutritional; endocrine; and metabolic disorders (2 sources) Body mass index (BMI) 31.0-31.9, adult; Translations: [Body mass index (BMI) 31.0-31.9, adult] Onset: 08-12-2015 12-20-2016 Chronic Other nutritional; endocrine; and metabolic disorders (4 sources) Body mass index (BMI) 33.0-33.9, adult; Translations: [Body mass index (BMI) 33.0-33.9, adult] Onset: 08-12-2015 05-04-2016 Chronic Other nutritional; endocrine; and metabolic disorders (2 sources) Body mass index (BMI) 34.0-34.9, adult; Translations: [Body mass index (BMI) 34.0-34.9, adult] Onset: 08-12-2015 11-03-2015 Chronic Past or Other Problems Problem Classification Problem Date Documented Date Episodic/Chronic Other screening for suspected conditions (not mental disorders or infectious disease) (2 sources) Abnormal electrocardiogram [ECG] [EKG]; Translations: [Abnormal electrocardiogram [ECG] [EKG]] Onset: 08-11-2015 08-11-2015 Episodic Residual codes; unclassified (2 sources) FH: Hypertension; Translations: [Family history of ischemic heart disease and other diseases of the circulatory system] 08-12-2015 Episodic Results Test Name Value Interpretation Reference Range Facil ity Vital Signs Date Time Vital Sign Value Performing Clinician Marcos ansari 12-20-2016 08:28-0400 BMI (Body Mass Index) 31.56 kg/m2 [facility] Work Phone: 12-20-2016 08:28-0400 BP Diastolic 78 mm[Hg] [facility] Work Phone: 12-20-2016 08:28-0400 BP Systolic 116 mm[Hg] [facility] Work Phone: 12-20-2016 08:28-0400 Height 180.34 cm [facility] Work Phone: 12-20-2016 08:28-0400 Pulse (Heart Rate) 84 /min [facility] Work Phone: 12-20-2016 08:28-0400 Respiratory Rate 18 /min [facility] Work Phone: 12-20-2016 08:28-0400 Weight 102.65 kg [facility] Work Phone: 06-01-2016 13:48-0500 Heart rate 92 /min [facility] Work Phone: 05-04-2016 10:01-0500 BSA (Body Surface Area) 2.28 m2 [facility] Work Phone: Procedures Date Procedure Procedure Detail Performing Clinician Start: 12-20-2016 End: 12-20-2016 Dietary management education, guidance, and counseling Nan Bernal Start: 12-20-2016 End: 12-20-2016 Follow Up Appt 6 months Binu Sanchez ASSEMBLY LEAD PERSON Work Phone: Start: 12-20-2016 End: 12-20-2016 PFM Binu Catina Daniel ASSEMBLY LEAD PERSON Work Phone: Start: 06-01-2016 End: 06-01-2016 Ecg routine ecg w/least 12 lds w/i&r Dony Stiles MD Start: 05-04-2016 End: 10-19-2016 24 hour holter monitor Dony Stiles MD Start: 05-04-2016 End: 05-04-2016 Ecg routine ecg w/least 12 lds w/i&r Dony Stiles MD Start: 05-04-2016 End: 05-04-2016 Follow Up Appt 6 months Dony Stiles MD Start: 05-04-2016 End: 05-04-2016 MMJina Stiles MD Start: 11-03-2015 End: 05-04-2016 Follow Up Appt 6 months Kimmy Melara PA-C Work Phone: Start: 11-03-2015 End: 05-04-2016 PF Kimmy Melara PA-C Work Phone: Start: 08-12-2015 End: 09-16-2015 Echocardiography Dony Stiles MD Start: 08-12-2015 End: 08-12-2015 MMJina Stiles MD Start: 08-12-2015 End: 09-16-2015 Nuclear stress test -Lexiscan Dony Stiles MD Start: 08-12-2015 End: 05-04-2016 Preoperative cardiovascular examination PRE-OPERATIVE CARDIOVASCULAR EXAMINATION Nan Bernal Plan of Treatment Date Care Activity Detail Author Start: 06-29-2017 End: 06-29-2017 Appointment Appointment [facility] Work Phone: Start: 12-20-2016 End: 12-20-2016 Follow Up Appt 6 months Follow Up Appt 6 months [facility] Work Phone: Start: 12-20-2016 End: 12-20-2016 PFM PFM [facility] Work Phone: Start: 06-01-2016 End: 06-01-2016 Ecg routine ecg w/least 12 lds w/i&r EKG (In office) [facility] Work Phone: Start: 05-04-2016 End: 05-04-2016 24 hour holter monitor 24 hour holter monitor [facility] Work Phone: Start: 05-04-2016 End: 05-04-2016 Ecg routine ecg w/least 12 lds w/i&r EKG (In office) [facility] Work Phone: Start: 05-04-2016 End: 05-04-2016 Follow Up Appt 6 months Follow Up Appt 6 months [facility] Work Phone: Start: 05-04-2016 End: 05-04-2016 Follow Up Appt Other Follow Up Appt Other [facility] Work Phone: Start: 05-04-2016 End: 05-04-2016 MMM MMM [facility] Work Phone: Start: 11-03-2015 End: 05-04-2016 Follow Up Appt 6 months Follow Up Appt 6 months [facility] Work Phone: Start: 11-03-2015 End: 05-04-2016 PFM PFM [facility] Work Phone: Start: 08-12-2015 End: 08-12-2015 Echocardiography Echocardiogram (complete) [facility] Work Phone: Start: 08-12-2015 End: 08-12-2015 Follow Up Appt 6 weeks Follow Up Appt 6 weeks [facility] Work Phone: Start: 08-12-2015 End: 08-12-2015 MMM MMM [facility] Work Phone: Start: 08-12-2015 End: 08-12-2015 Nuclear stress test -Lexiscan Nuclear stress test -Lexiscan [facility] Work Phone: Additional Source Comments FOR RECORDS PERTAINING TO PATIENTS WHO ARE OR HAVE BEEN ENROLLED IN A CHEMICAL DEPENDENCY/SUBSTANCEABUSE PROGRAM, SOME INFORMATION MAY BE OMITTED. This clinical summary was aggregated from multiple sources. Caution should be exercised in using it in the provision of clinical care. This summary normalizes information from multiple sources, and as a consequence, information in this document may materially change the coding, format and clinical context of patient data. In addition, data may be omitted in some cases. CLINICAL DECISIONS SHOULD BE BASED ON THE PRIMARY CLINICAL RECORDS. [employer] [facility]. provides no warranty or guarantee of the accuracy or completeness of information in this document.
[2023-07-31 11:59] LABS: Absolute Lymphocyte Count 1.67 X10^3/uL (0.83-4.51); Absolute Neutrophil Count 3.9 X10^3/uL (2.0-7.7); Basophil# 0.03 X10^3/uL; Basophil% 0.5 % (0-1); Eosinophil# 0.09 X10^3/uL; Eosinophils% 1.5 % (0-5); Hematocrit 41.9 % (37-47); Hemoglobin 13.1 g/dL (12.0-15.0); Lymphocyte # 1.67 X10^3/ul (0.83-4.51); Lymphocyte % 27.1 % (19-41); Mean Corp Hgb Conc 31.3 g/dL (32-36); Mean Corpuscular Hgb 28.4 pg (27.0-32.0); Mean Corpuscular Volume 90.7 fL (81-99); Mean Platelet Vol. 11.1 fl (6.2-12.0); Monocyte# 0.42 X10^3/uL; Monocyte% 6.8 % (0-10); NRBC Flagged by Analyzer 0 % (0-5); Neutrophil # 3.93 X10^3/uL (2.7-7.7); Neutrophil % 63.8 % (47-70); Platelet Count 327 K/mm3 (150-450); RBC Distribution Width CV 13.5 % (11.6-14.6); RBC Distribution Width SD 44.3 fl (35.1-43.9); Red Blood Count 4.62 M/mm3 (4.2-5.4); White Blood Count 6.2 K/mm3 (4.4-11.0)
[2023-07-31 12:11] LABS: Vitamin D,25 Hydroxy 35.2 ng/mL
[2023-07-31 12:18] LABS: AST(SGOT) 18 U/L (15-37); Alanine Aminotransfer ALT/SGPT 25 U/L (13-56); Albumin, Serum 3.6 g/dL (3.2-5.0); Alkaline Phosphatase 81 U/L (45-117); Anion Gap 5 (5-15); BUN 16 mg/dL (7-18); Chloride 112 mmol/L (98-107); EST Glomerular Filtration Rate 75 mL/min (>60); Est Glom Filt Rate - Afr Amer 90 mL/min (>60); Globulin 3.6 g/dL (2.2-4.2); Glucose 122 mg/dL (74-106); Potassium 4.2 mmol/L (3.5-5.1); Protein, Total 7.2 g/dL (6.4-8.2); Sodium Level 141 mmol/L (136-145); Thyroid Stim Hormone (TSH) 2.29 uIU/mL (0.358-3.74)
== END | disposition home or self-care (01) ==
LOC: POLAB3 10:24
PROVIDERS: PCP Family Medicine Geriatric Medicine; Visit Provider Family Medicine Geriatric Medicine
DX: I10 Essential (primary) hypertension (principal); E55.9 Vitamin D deficiency, unspecified
CPT/HCPCS: 36415; 80053; 82306; 84443; 85025

== ENCOUNTER → 2023-08-15 | Outpatient (CLI) | payer MEDICARE, BC, SELFPAY ==
--- NOTE | 2023-08-15 13:40 | BI_ITS ---
MAMMOGRAPHY - BILATERAL SCREENING REASON FOR EXAM: Female, 73 years old. Routine annual screening examination. PERTINENT HISTORY: Non-contributory. TECHNIQUE: Digital bilateral breast talia (3D mammographic acquisition) in the CC and MLO projections. 2-D mediolateral oblique (MLO) and craniocaudad (CC) views of both breasts were obtained. CAD: Full Field Digital Mammography with Computer Added Detection was performed. COMPARISON: Comparison is made with prior study dated July 28, 2022 and July 29, 2020. FINDINGS: Breast Composition: The breasts are almost entirely fatty. There are no dominant masses or suspicious calcifications. No other significant abnormalities are identified. There has been no significant change since the prior study. BI/SCRN MAMM (CAD)W/TALIA BILAT IMPRESSION: Stable bilateral screening mammogram. Yearly follow-up mammogram recommended. (A) ASSESSMENT CATEGORY: BIRADS Category 1: Negative. A letter regarding these results will be sent to the patient by the facility within 30 days. Approximately 10% of breast cancers are not detected by mammography. A normal mammogram should not delay biopsy of a clinically suspicious abnormality. [id number] Electronically Signed: Bravo Samayoa MD at 9:22 EDT ,
== END | disposition home or self-care (01) ==
LOC: OPBI 16:00
PROVIDERS: PCP Family Medicine Geriatric Medicine; Referring Provider Family Medicine Geriatric Medicine; Visit Provider Family Medicine Geriatric Medicine
DX: Z12.31 Encounter for screening mammogram for malignant neoplasm of breast (principal)
CPT/HCPCS: 77063; 77067

== ENCOUNTER → 2023-11-16 | Outpatient (CLI) | payer MEDICARE, BC, SELFPAY ==
--- NOTE | 2023-11-16 16:00 | CT_ITS ---
INDICATION: PAIN EXAMINATION: CT PELVIS BONE - CT Pelvis W/O Contrast Injection TECHNIQUE: Routine noncontrast bone CT protocol was performed of the pelvis. 2-D reformats were performed by the technologist. The protocol utilizes one or more of the following dose reduction techniques: automated exposure control, adjustment of mA and/or kV according to patient size,and/or use of iterative reconstruction technique. IV Contrast dosage and agent: None. RADIATION DOSAGE (If Supplied By Facility): CTDIvol = ( 35.79 ) mGy, DLP = ( 1125.96 ) mGycm COMPARISON: Prior study dated: 04/22/2019 FINDINGS: SOFT TISSUES: Mild inflammation overlies the right gluteal musculature. Atrophy of the left gluteal musculature. Colonic diverticulosis without diverticulitis. No suspicious pelvic mass. Normal appendix. No lymphadenopathy. No radiopaque foreign body. BONES/JOINTS: No acute fracture or subluxation. Normal alignment of the hips. Mild joint space narrowing of both hips. No sclerotic or destructive changes. CT/Pelvis without IV Contrast IMPRESSION: No evidence of pelvic fracture. Mild inflammation overlying the right gluteal musculature could be a small hematoma.. Electronically Signed: Severino Jaimes MD at 22:29 EDT ,
--- NOTE | 2023-11-16 16:00 | CT_ITS ---
CT LEFT LOWER EXTREMITY CLINICAL INDICATION: LEFT HIP TECHNIQUE: Axial CT images of the LEFT lower extremity was performed without IV contrast material. Coronal and sagittal reformats were provided. The protocol utilizes one or more of the following dose reduction techniques: automated exposure control, adjustment of mA and/or kV according to patient size,and/or use of iterative reconstruction technique. RADIATION DOSAGE (If Supplied By Facility): CTDIvol = ( 26.29 ) mGy, DLP = ( 925.53 ) mGycm COMPARISON: No relevant prior comparison study available FINDINGS: Bones: Osseous structures are normal without evidence of fracture or dislocation. The left hip is well aligned. No lytic or blastic osseous masses. Soft Tissues: The visualized intrapelvic structures show no acute abnormality. Colonic diverticulosis. Mild atrophy of the left gluteal musculature. CT/Extremity Lower without Contra IMPRESSION: No fracture or malalignment. Electronically Signed: Severino Jaimes MD at 22:27 EDT ,
--- NOTE | 2023-11-16 16:00 | CT_ITS ---
INDICATION: LOW BACK PAIN EXAMINATION: CT LUMBAR SPINE - CT Spine Lumbar W/O Contrast Injection TECHNIQUE: Helically acquired images were obtained of the lumbar spine. 2D reformats were reviewed. A radiation dose optimization technique was used for this scan. The protocol utilizes one or more of the following dose reduction techniques: automated exposure control, adjustment of mA and/or kV according to patient size,and/or use of iterative reconstruction technique. IV Contrast dosage and agent: None. RADIATION DOSAGE (If Supplied By Facility): CTDIvol = ( 35.63 ) mGy, DLP = ( 1311.35 ) mGycm COMPARISON: Prior study dated: CT from 04/22/2019 FINDINGS: VERTEBRAE: No fracture or traumatic subluxation. No discrete lytic or blastic abnormality observed. Normal alignment. DISCS and SPINAL CANAL: Disc space narrowing at L5-S1 with vacuum disc phenomenon. Endplate osteophytes throughout. Mild facet arthropathy. No critical stenosis. VISUALIZED ABDOMEN: Visualized abdominal aorta is not dilated. There is no retroperitoneal adenopathy. CT/Spine Lumbar without Contrast IMPRESSION: No evidence of acute lumbar spinal fracture or spondylolisthesis. Mild degenerative change throughout. Electronically Signed: Severino Jaimes MD at 22:31 EDT Reading Location ID and State: [facility] / [place] Tel , Service support ,
--- NOTE | 2023-11-16 16:00 | CT_ITS ---
CT RIGHT LOWER EXTREMITY CLINICAL INDICATION: PAIN TECHNIQUE: Axial CT images of the RIGHT lower extremity was performed without IV contrast material. Coronal and sagittal reformats were provided. The protocol utilizes one or more of the following dose reduction techniques: automated exposure control, adjustment of mA and/or kV according to patient size,and/or use of iterative reconstruction technique. RADIATION DOSAGE (If Supplied By Facility): CTDIvol = ( 26.06 ) mGy, DLP = ( 878.51 ) mGycm COMPARISON: No relevant prior comparison study available FINDINGS: Bones: Osseous structures are normal without evidence of fracture or dislocation. The right hip is well aligned. No lytic or blastic osseous masses. Soft Tissues: Mild superficial edema overlies the right gluteal musculature. The visualized intrapelvic structures show no acute abnormality. Colonic diverticulosis. CT/Extremity Lower without Contra IMPRESSION: No fracture or malalignment. Mild inflammation overlies the right gluteal musculature. Electronically Signed: Severino Jaimes MD at 22:25 EDT ,
== END | disposition home or self-care (01) ==
LOC: CT 15:41
PROVIDERS: PCP Family Medicine Geriatric Medicine; Referring Provider Physician Assistant; Visit Provider Physician Assistant
DX: M54.16 Radiculopathy, lumbar region (principal); M16.0 Bilateral primary osteoarthritis of hip
CPT/HCPCS: 72131; 72192; 73700

== ENCOUNTER → 2024-08-01 | Outpatient (CLI) | payer MEDICARE, BC, SELFPAY ==
[2024-08-01 11:10] LABS: Absolute Neutrophil Count 4.1 X10^3/uL (2.0-7.7); Basophil# 0.03 X10^3/uL; Basophil% 0.5 % (0-1); Eosinophil# 0.13 X10^3/uL; Hematocrit 42.3 % (37-47); Hemoglobin 12.9 g/dL (12.0-15.0); Lymphocyte % 27.5 % (19-41); Mean Corp Hgb Conc 30.5 g/dL (32-36); Mean Corpuscular Hgb 27.9 pg (27.0-32.0); Mean Corpuscular Volume 91.4 fL (81-99); Mean Platelet Vol. 11.3 fl (6.2-12.0); Monocyte# 0.44 X10^3/uL; Monocyte% 6.7 % (0-10); NRBC Flagged by Analyzer 0 % (0-5); Neutrophil # 4.13 X10^3/uL (2.7-7.7); Platelet Count 241 K/mm3 (150-450); RBC Distribution Width CV 14.2 % (11.6-14.6); RBC Distribution Width SD 46.9 fl (35.1-43.9); Red Blood Count 4.63 M/mm3 (4.2-5.4); White Blood Count 6.6 K/mm3 (4.4-11.0)
[2024-08-01 14:23] LABS: ALB/GLOB Ratio 1.5 RATIO (0.9-2.4); AST(SGOT) 22 U/L (<=31); Alanine Aminotransfer ALT/SGPT 16 U/L (<=34); Albumin, Serum 4.1 g/dL (3.4-4.8); Alkaline Phosphatase 75 U/L (35-104); Anion Gap 12 (5-15); BUN 16 mg/dL (4-19); BUN/Creat Ratio 21.4 RATIO (10-20); Calcium 10.2 mg/dL (7.6-11.0); Carbon Dioxide 22.8 mmol/L (22.0-29.0); Chloride 105 mmol/L (96-108); Creatinine, Serum 0.7 mg/dL (0.6-1.0); EST Glomerular Filtration Rate 86 (>60); Globulin 2.7 g/dL (2.2-4.2); Glucose 104 mg/dL (70-99); Protein, Total 6.9 g/dL (5.9-8.4); Sodium Level 140 mmol/L (133-145); Total Bilirubin 0.31 mg/dL (0.00-1.30); Vitamin D,25 Hydroxy 30.8 ng/mL (30-100)
== END | disposition home or self-care (01) ==
LOC: POLAB3 10:39
PROVIDERS: PCP Family Medicine Geriatric Medicine; Visit Provider Family Medicine Geriatric Medicine
DX: I10 Essential (primary) hypertension (principal); E55.9 Vitamin D deficiency, unspecified
CPT/HCPCS: 36415; 80053; 82306; 84443; 85025

== ENCOUNTER → 2024-08-15 | Outpatient (CLI) | payer MEDICARE, BC, SELFPAY ==
--- NOTE | 2024-08-15 11:58 | BI_ITS ---
PROCEDURE: SCRN MAMM (CAD)W/TALIA BILAT REASON FOR EXAM: F, Age 74 y/o , SCREENING. No family history. TECHNIQUE: Bilateral screening digital breast tomosynthesis with 2D and 3D images. Computer aided detection. COMPARISON: Prior exam(s) dating back to August 15, 2023.. FINDINGS: The breasts are almost entirely fatty. Stable 4.5 mm well-defined nodule in the superior slightly lateral retroareolar region of the left breast. No suspicious masses, areas of developing architectural distortion, or suspicious calcifications. BI/SCRN MAMM (CAD)W/TALIA BILAT IMPRESSION: BI-RADS 2: BENIGN. RECOMMEND ANNUAL MAMMOGRAPHIC SCREENING. Follow-up code: Routine Follow-up The patient will be notified of the results by letter. Reading Location: [id number]
== END | disposition home or self-care (01) ==
LOC: OPBI 11:55
PROVIDERS: PCP Family Medicine Geriatric Medicine; Referring Provider Family Medicine Geriatric Medicine; Visit Provider Family Medicine Geriatric Medicine
DX: Z12.31 Encounter for screening mammogram for malignant neoplasm of breast (principal)
CPT/HCPCS: 77063; 77067